=== PATIENT | female | born 1945 | race Caucasian/White ===

== ENCOUNTER 2019-05-03 07:23 | Outpatient (CLI) | payer MEDICARE, SELFPAY ==
[2019-05-03 07:41] LABS: Basophils Absolute Auto 0.04 K/mm3 (0.00-0.10); Basophils Percent Auto 0.7 % (0.0-1.0); Eosinophils Absolute Auto 0.25 K/mm3 (0.02-0.50); Eosinophils Percent Auto 4.4 % (1.0-6.0); Hematocrit 40.9 % (35.0-42.0); Hemoglobin 13.9 g/dL (11.7-13.8); Immature Granulocyte Absolute 0.02 K/mm3 (0.00-0.00); Immature Granulocyte Percent A 0.4 % (0.0-0.0); Lymphocytes Absolute Auto 1.95 K/mm3 (1.10-4.50); Lymphocytes Percent Auto 34.5 % (18.0-42.0); Mean Corpuscular Hemoglobin 31.1 pg (27.0-31.0); Mean Corpuscular Volume 91.5 fL (78.0-102.0); Mean Platelet Volume 9.7 fl (9.2-11.8); Monocytes Absolute Auto 0.52 K/mm3 (0.10-0.90); Monocytes Percent Auto 9.2 % (2.0-11.0); Neutrophils Absolute Auto 2.9 K/mm3 (1.7-7.2); Neutrophils Percent Auto 50.8 % (50.0-70.0); Platelet Count Result 184 K/mm3 (150-420); Red Blood Count 4.47 M/mm3 (4.20-5.40); Red Cell Distribution Width 12.7 % (11.6-14.4); White Blood Count 5.7 K/mm3 (4.8-10.8)
[2019-05-03 09:09] LABS: Alanine Aminotransferase 23 U/L (14-59); Albumin Level 4.2 g/dL (3.4-5.0); Alkaline Phosphatase 81 U/L (46-116); Anion Gap 13.3 mmol/L (7-16); Aspartate Amino Transferase 11 U/L (15-37); Bilirubin,Total 1.5 mg/dL (0.00-1.00); Blood Urea Nitrogen 20 mg/dL (7-18); Calcium 9.2 mg/dL (8.5-10.1); Carbon Dioxide 30 mmol/L (21-32); Chloride 105 mmol/L (98-108); Cholesterol 158 mg/dL (0-200); Estimated Glomerular Filt Rate 43; Glucose 98 mg/dL (70-99); HDL Direct 69 mg/dL (40-60); LDL Cholesterol Calculated 61 mg/dL (<130); Osmolality Calculated 300 mOsm/kg (285-295); Potassium 4.3 mmol/L (3.5-5.1); Sodium 144 mmol/L (136-145); Total Protein 7.4 g/dL (6.4-8.2); Triglycerides 141 mg/dL (0-150)
[2019-05-03 09:13] LABS: Thyroid Stimulating Hormone Reflex 1.81 u/IU/mL (0.36-3.74)
[2019-05-07 19:46] LABS: Hepatitis C Signal to Cutoff 0.01 ratio (<1.00); Hepatitis C Virus Antibody Nonreactive (Nonreactive)
== END 2019-05-03 07:24 | disposition home or self-care (01) ==
LOC: CHSLAB 07:25
PROVIDERS: PCP Family Medicine; Visit Provider Family Medicine
DX: I10 Essential (primary) hypertension (principal); Z11.59 Encounter for screening for other viral diseases
CPT/HCPCS: 36415; 80053; 80061; 84443; 85025

== ENCOUNTER 2019-12-08 10:56 | Outpatient (CLI) | payer MEDICARE, SELFPAY ==
--- NOTE | ~2019-12-08 | MM_ITS ---
EXAMINATION: MM screening blaine LT w louis HISTORY: Screening TECHNIQUE: Craniocaudal and mediolateral oblique 3-D tomosynthesis images were obtained and synthetic 2-D images were generated. CAD analysis was submitted and interpreted. COMPARISON: Comparison to multiple prior studies sequentially, with oldest reviewed study dated 06/2013. BREAST PARENCHYMAL COMPOSITION: There are scattered areas of fibroglandular density. FINDINGS: There is no evidence of suspicious mass, calcification, or architectural distortion to sugg est malignancy in the left breast. There has been no suspicious interval change. IMPRESSION: 1. No mammographic evidence of malignancy. 2. Recommend routine screening mammography in one year. BI-RADS Category 1: Negative Reviewed, dictated and finalized at location A.
== END 2019-12-08 10:57 | disposition home or self-care (01) ==
PROVIDERS: PCP Family Medicine; Visit Provider Family Medicine
DX: Z12.31 Encounter for screening mammogram for malignant neoplasm of breast (principal)
CPT/HCPCS: 77063; 77067

== ENCOUNTER 2020-09-19 09:57 | Outpatient (CLI) | payer MEDICARE, SELFPAY ==
[2020-09-19 10:27] LABS: Basophils Absolute Auto 0.06 K/mm3 (0.00-0.10); Eosinophils Absolute Auto 0.29 K/mm3 (0.02-0.50); Hemoglobin 13.3 g/dL (11.7-13.8); Immature Granulocyte Absolute 0.02 K/mm3 (0.00-0.00); Immature Granulocyte Percent A 0.3 % (0.0-0.0); Lymphocytes Absolute Auto 1.41 K/mm3 (1.10-4.50); Lymphocytes Percent Auto 24.5 % (18.0-42.0); Mean Corpuscular HGB Conc 34.1 g/dL (32.0-36.0); Mean Corpuscular Hemoglobin 31.6 pg (27.0-31.0); Mean Corpuscular Volume 92.6 fL (78.0-102.0); Monocytes Absolute Auto 0.66 K/mm3 (0.10-0.90); Monocytes Percent Auto 11.5 % (2.0-11.0); Neutrophils Absolute Auto 3.3 K/mm3 (1.7-7.2); Neutrophils Percent Auto 57.7 % (50.0-70.0); Platelet Count Result 188 K/mm3 (150-420); Red Blood Count 4.21 M/mm3 (4.20-5.40); Red Cell Distribution Width 12.5 % (11.6-14.4); White Blood Count 5.8 K/mm3 (4.8-10.8)
[2020-09-19 11:29] LABS: Alanine Aminotransferase 28 U/L (14-59); Alkaline Phosphatase 80 U/L (46-116); Anion Gap 11 mmol/L (8-16); Aspartate Amino Transferase 15 U/L (15-37); Bilirubin,Total 1.5 mg/dL (0.00-1.00); Blood Urea Nitrogen 22 mg/dL (7-18); Calcium 9.3 mg/dL (8.5-10.1); Carbon Dioxide 27 mmol/L (21-32); Chloride 103 mmol/L (98-108); Cholesterol 153 mg/dL (0-200); Estimated Glomerular Filt Rate 44; Glucose 91 mg/dL (70-99); HDL Direct 69 mg/dL (40-60); LDL Cholesterol Calculated 65 mg/dL (<130); Osmolality Calculated 295 mOsm/kg (285-295); Potassium 4.7 mmol/L (3.5-5.1); Sodium 141 mmol/L (136-145); Total Protein 6.9 g/dL (6.4-8.2); Triglycerides 97 mg/dL (0-150)
== END 2020-09-19 09:58 | disposition home or self-care (01) ==
LOC: CHSLAB 09:59
PROVIDERS: PCP Family Medicine; Visit Provider Family Medicine
DX: E03.9 Hypothyroidism, unspecified (principal); E11.9 Type 2 diabetes mellitus without complications
CPT/HCPCS: 36415; 80053; 80061; 85025

== ENCOUNTER 2020-10-27 04:58 | Emergency (ER) | payer MEDICARE, SELFPAY ==
--- NOTE | ~2020-10-27 | XR_ITS ---
EXAMINATION: XR chest 1V portable DATE: 10/27/2020 05:17 INDICATION: Shortness of breath TECHNIQUE: frontal view of the chest was obtained. COMPARISON: Chest radiograph dated 09/23/2017 FINDINGS: Calcified nodules in the left midlung zone consistent with old granulomatous disease. Peripheral airs pace opacities, pleural effusion or pneumothorax. There is minimal basilar pulmonary edema on subsequ ent chest CT which is indiscernible on the chest radiograph. The cardiomediastinal silhouette is norm al. IMPRESSION: 1. Minimal pulmonary edema at the lung bases seen on subsequent chest CT which is indiscernible on th e chest radiograph which is unremarkable. Reviewed, dictated and finalized at location A. IMPRESSION: 1. Minimal pulmonary edema at the lung bases seen on subsequent chest CT which is indiscernible on the chest radiograph which is unremarkable.
--- NOTE | ~2020-10-27 | CT_ITS ---
EXAMINATION: CT diagnostic chest wo con DATE: 10/27/2020 06:10 INDICATION: SOB SOB X 1 HOUR/HX OF AFIB TECHNIQUE: Computed tomography (CT) of the chest was performed without intravenous contrast. Addition al 3D reconstructions utilizing coronal maximum intensity projection (MIP) were performed. Automated exposure control and iterative reconstruction technique were employed. The dose-length product was 24 6.06 mGy-cm. COMPARISON: None FINDINGS: There is bilateral mild smooth septal line thickening at the lung bases and dependent lungs consisten t with mild pulmonary edema. Calcified nodules at the lingula consistent with old granulomatous disea se. Heart size is normal. No pericardial or pleural effusion. Atherosclerotic coronary artery calcifi c location. Thoracic aorta is normal in caliber. No pathologically enlarged thoracic lymphadenopathy. Hepatic and splenic calcific lesions consistent with old granulomatous disease. Calcified gallstones at the neck and dependent aspect of the otherwise normal-appearing gallbladder. No dilation, wall th ickening or pericholecystic inflammatory stranding to suggest acute cholecystitis. Bones are unremark able. IMPRESSION: 1. Mild pulmonary edema Reviewed, dictated and finalized at location A. IMPRESSION: 1. Mild pulmonary edema
[2020-10-27 04:58] VITALS: BP 164/60; PULSE 62; RESP 18; TEMP 37.2; O2SAT 98
--- NOTE | 2020-10-27 05:04 | ECG_ITS ---
Measurements Intervals [place] Rate: 61 P: 54 NC: 178 QRS: 57 QRSD: 84 T: 52 QT: 403 QTc: 407 Interpretive Statements SINUS RHYTHM BORDERLINE ST ABNORMALITY- LATERAL LEADS BASELINE ARTIFACT- I, II, III, AVR, AVL, AVF BORDERLINE ECG Electronically Signed On 10-27-2020 7:47:34 CDT by Sid Medrano D.O.
[2020-10-27 05:19] LABS: Basophils Absolute Auto 0.05 K/mm3 (0.00-0.10); Basophils Percent Auto 0.8 % (0.0-1.0); Eosinophils Absolute Auto 0.28 K/mm3 (0.02-0.50); Eosinophils Percent Auto 4.6 % (1.0-6.0); Hematocrit 35.7 % (35.0-42.0); Immature Granulocyte Absolute 0.03 K/mm3 (0.00-0.00); Immature Granulocyte Percent A 0.5 % (0.0-0.0); Lymphocytes Absolute Auto 1.42 K/mm3 (1.10-4.50); Lymphocytes Percent Auto 23.5 % (18.0-42.0); Mean Corpuscular HGB Conc 33.6 g/dL (32.0-36.0); Mean Corpuscular Hemoglobin 30.8 pg (27.0-31.0); Mean Corpuscular Volume 91.8 fL (78.0-102.0); Mean Platelet Volume 9.4 fl (9.2-11.8); Monocytes Absolute Auto 0.63 K/mm3 (0.10-0.90); Monocytes Percent Auto 10.4 % (2.0-11.0); Neutrophils Absolute Auto 3.6 K/mm3 (1.7-7.2); Neutrophils Percent Auto 60.2 % (50.0-70.0); Platelet Count Result 218 K/mm3 (150-420); Red Blood Count 3.89 M/mm3 (4.20-5.40); Red Cell Distribution Width 12.5 % (11.6-14.4)
[2020-10-27 05:20] VITALS: BP 158/89; PULSE 56; RESP 16; O2SAT 98
[2020-10-27] MEDS: PANTOPRAZOLE SODIUM IV 40 MG VIAL IV PUSH (05:32)
[2020-10-27] MEDS: ONDANSETRON INJ 4 MG/2 ML VIAL IV PUSH (05:32)
[2020-10-27] MEDS: methylPREDNISolone SOD SUCC 125 MG VIAL IV PUSH (05:32)
[2020-10-27 05:36] LABS: Partial Thromboplastin Time 28.8 SEC (23.90-30.70); Prothrombin Time 10.6 Seconds (9.50-12.10)
--- NOTE | 2020-10-27 05:36 | ED.CHESTPAIN ---
HPI - Chest Pain General Chief Complaint: Chest Pain Stated Complaint: pain Time Seen by Provider: 10/27/20 05:01 Source: patient and RN notes reviewed Mode of arrival: ambulatory Limitations: no limitations History of Present Illness HPI narrative: sudden SOB, nausea and vomiting with loose stools. no documented fever. Pertinent past history: other (atrial fibrillation) Onset (ago): hour(s) (1) Timing of current episode: episodic Prior episodes: Yes Onset: during rest and awoke with symptoms Severity: mild Pain scale (0-10): 0 Relieving factors: nothing Exacerbating factors: nothing Associated symptoms: nausea and vomiting Treatment prior to arrival: none Related Data Home Medications Medication Instructions Recorded Confirmed apixaban [Eliquis] 5 mg PO BIDAC 03/18/19 10/27/20 metoprolol succinate 50 mg PO BIDAC 03/18/19 10/27/20 dronedarone 400 mg tablet 400 mg PO Q12H 04/29/19 10/27/20 esomeprazole magnesium 20 mg 20 mg PO DAILY 04/29/19 10/27/20 capsule,delayed release aspirin [Adult Low Dose Aspirin] 81 mg PO DAILY 10/27/20 10/27/20 Allergies Allergy/AdvReac Type Severity Reaction Status Date / Time No Known Allergies Allergy Verified 09/19/20 09:48 Review of Systems Review of Systems: All systems reviewed & are unremarkable except as noted in HPI and below Constitutional: Constitutional: Reports as per HPI and Reports no additional constitutional complaints Eyes: Eyes: Reports as per HPI and Reports no additional eye complaints ENT: Reports system reviewed and no additional complaints, except as documented and Reports as per HPI Cardiovascular: Cardiovascular: Reports as per HPI and Reports no additional cardiovascular complaints Respiratory: Respiratory: Reports as per HPI, Reports no additional respiratory complaints and Reports dyspnea Gastrointestinal: Gastrointestinal: Reports as per HPI and Reports no additional gastrointestinal complaints Genitourinary: Genitourinary: Reports no additional female genitourinary complaints and Reports as per HPI Musculoskeletal: Musculoskeletal: Reports no additional musculoskeletal complaints and Reports as per HPI Integumentary/Breasts: Skin/Breast: Reports system reviewed and no additional complaints, except as docu and Reports as per HPI Neurologic: Reports system reviewed and no additional complaints, except as documented and Reports as per HPI Psychiatric: Psychiatric: Reports no additional psychiatric complaints and Reports as per HPI Endocrine: Endocrine: Reports no additional endocrine complaints and Reports as per HPI Hematologic/Lymphatic: Hematologic/Lymphatic: Reports no additional hematologic/lymphatic complaints and Reports as per HPI Allergic/Immunologic: Allergic/Immunologic: Reports no additional allergic/immunologic complaints and Reports as per HPI [facility] Past Medical History Medical History Atrial fibrillation Breast cancer Chronic GERD Hyperlipidemia Hypertension Rheumatic fever Surgical History Surgical History H/O mastectomy History of bladder surgery History of tonsillectomy Social History Social History Smoking status: Never smoker Alcohol intake: never Substance use: never Exam Const: General: no acute distress and alert Orientation/consciousness: patient oriented x3 Limitations: no limitations HENMT: Head: normal to inspection Ears: external ears normal and TM's normal bilaterally Mouth: Yes lip normal and Yes moist mucous membranes Teeth and gingiva: dentition normal Eyes: Conjunctivae: conjunctivae normal Pupils: Equal, round and reactive pupils present EOM: EOMs intact bilaterally Neck: Neck: normal visual inspection Chest: Chest palpation & inspection: normal inspection of the chest Resp: Effort & Inspection: normal respira
[2020-10-27 05:39] LABS: Alanine Aminotransferase 45 U/L (14-59); Albumin Level 3.5 g/dL (3.4-5.0); Alkaline Phosphatase 78 U/L (46-116); Anion Gap 12 mmol/L (8-16); Aspartate Amino Transferase 22 U/L (15-37); Bilirubin,Total 0.8 mg/dL (0.00-1.00); Blood Urea Nitrogen 19 mg/dL (7-18); Calcium 8.5 mg/dL (8.5-10.1); Carbon Dioxide 26 mmol/L (21-32); Chloride 106 mmol/L (98-108); Estimated CRCL calculation 29 ml/min; Estimated Glomerular Filt Rate 44; Glucose 110 mg/dL (70-99); Lipase 44 U/L (73-393); NT Pro B Type Natriuretic Pept 1209 pg/mL (0-125); Osmolality Calculated 301 mOsm/kg (285-295); Potassium 3.9 mmol/L (3.5-5.1); Sodium 144 mmol/L (136-145); Total Protein 6.5 g/dL (6.4-8.2); Troponin I 4.1 ng/L (0.00-60.4)
[2020-10-27] MEDS: ALBUTEROL SULFATE (*SP) INHALER 2 PUFF INHALATION (05:46)
[2020-10-27 06:00] VITALS: BP 160/64; PULSE 58; RESP 16; O2SAT 95
[2020-10-27 06:02] LABS: Base Excess ABG -1.8 mmol/L (0-2); HCO3 ABG 21.4 mmol/L (23-29); Oxygen Content ABG 17.2 %vol (16.0-22.0); Oxygen Saturation ABG 95.6 % (95-97); Oxyhemoglobin 95.2 % (94-100); PO2 ABG 80.9 mmHg (75-85); Total Hemoglobin 12.8 g/dL; pH ABG 7.44 (7.35-7.45)
[2020-10-27 06:05] LABS: Add Urine Microscopic? NO; Appearance Urine Clear (Clear); Bilirubin Urine Negative (Negative); Blood Urine Negative (Negative); Color Urine Light Yellow (Yellow); Device ROOM AIR; Glucose Urine UA Negative (Negative); Ketones Urine Negative (Negative); Leukocyte Esterase Ur Negative (Negative); Modified Allen's Test Pass; Nitrate Urine Negative (Negative); Protein Urine Negative (Negative); Site Drawn LEFT RADIAL; Urobilinogen Urine 0.2 mg/dL (0.2-1.0)
[2020-10-27] MEDS: ASPIRIN 81 MG CHEWABLE TABLET 324 MG PO (06:17)
[2020-10-27 06:23] VITALS: BP 166/59; PULSE 60; RESP 18; O2SAT 96
[2020-10-27 06:23] LABS: SARS-CoV-2 Ag Negative (Negative)
[2020-10-27 06:54] VITALS: BP 159/55; PULSE 59; RESP 16; TEMP 36.6; O2SAT 95
== END 2020-10-27 07:03 | disposition home or self-care (01) ==
PROVIDERS: Emergency Provider Emergency Medicine; PCP Family Medicine
DX: B34.9 Viral infection, unspecified (principal); Z20.822 Contact with and (suspected) exposure to COVID-19; R06.02 Shortness of breath; I48.91 Unspecified atrial fibrillation; Z85.3 Personal history of malignant neoplasm of breast; E78.5 Hyperlipidemia, unspecified; I10 Essential (primary) hypertension
CPT/HCPCS: 36415; 36600; 71045; 71250; 80053; 81003; 82805; 83690; 83880; 84484; 85025; 85610; 85730; 87426; 93005; 96374; 96375; 99283; 99284; A9270; C9113; C9803; J2405; J2930

== ENCOUNTER 2020-12-06 10:00 | Outpatient (CLI) | payer MEDICARE, SELFPAY ==
[2020-12-09 22:03] LABS: H pylori Ag Stool Not Detected (Not Detected)
== END 2020-12-06 10:01 | disposition home or self-care (01) ==
LOC: CHSLAB 10:03
PROVIDERS: PCP Family Medicine; Visit Provider Family Medicine
DX: R10.9 Unspecified abdominal pain (principal)
CPT/HCPCS: 87338

== ENCOUNTER 2020-12-10 12:05 | Outpatient (CLI) | payer MEDICARE, SELFPAY ==
--- NOTE | ~2020-12-10 | MM_ITS ---
EXAMINATION: MM screening blaine LT w louis HISTORY: Screening TECHNIQUE: Craniocaudal and mediolateral oblique 3-D tomosynthesis images were obtained and synthetic 2-D images were generated. CAD analysis was submitted and interpreted. COMPARISON: Comparison to multiple prior studies sequentially, with oldest reviewed study dated 11/15. BREAST PARENCHYMAL COMPOSITION: There are scattered areas of fibroglandular density. FINDINGS: There is no evidence of suspicious mass, calcification, or architectural distortion to sugg est malignancy in either breast. There has been no suspicious interval change. IMPRESSION: 1. No mammographic evidence of malignancy. 2. Recommend routine screening mammography in one year. BI-RADS Category 1: Negative Reviewed, dictated and finalized at location A.
== END 2020-12-10 12:06 | disposition home or self-care (01) ==
LOC: CHSIMG 12:06
PROVIDERS: PCP Family Medicine; Visit Provider Family Medicine
DX: Z12.31 Encounter for screening mammogram for malignant neoplasm of breast (principal)
CPT/HCPCS: 77063; 77067

== ENCOUNTER 2021-03-27 08:00 | Outpatient (RCR) | payer MEDICARE, SELFPAY ==
--- NOTE | 2021-03-26 16:18 | PTOPEVAL ---
Thank you for referring Deedee Mosley to [facility].? The patient is scheduled to be seen for therapy? ____x/week for ___ weeks. Please review, sign, date and return this plan of care SACHA. I agree with and certify that the following plan of care is medically necessary. Referring Physician Date Admitting Provider: Attending Provider: Ladi Arnold NP Referring Provider: *PT Outpatient Evaluation Start: 03/26/21 15:12 Freq: Status: Active Protocol: Document 03/26/21 15:10 [facility] (Rec: 03/26/21 16:13 [facility] [id number]) Therapy Assessment Status Assessment Status Assessment Status Evaluation Outpatient Past Medical History Cardiovascular History Hx Atrial Fibrillation Yes HEENT History Hx Tonsillectomy Yes Reproductive History Hx Post Menopausal Yes Other History Hx Cancer Yes: BREAST Evaluation Information Problem Diagnosis low back pain with R sided sciatica Onset 03/25/21 Additional Evaluation Detail LEFS = 27% functionally declined Subjective Information patient reports she has been Query Text:As Reported By Patient/ having sciatic like symptoms Family for about 1 month. she reports she saw her PCP about 1 month ago. she reports a history of lower back pain for years. she reports she was treated with a dose pack of predisone for 6 days and the pain went away. however, she reports the pain and symptoms came back about 1 week after finishing the dose pack. she reports she is now unable to sleep due to pain. she reports she has increased pain with walking as well. she reports having to help lift her R LE into the car. she reports rest makes her feel better. Prior Level of Function Comments Additional Prior Level of Function patient reports she has a Comments history of lower back problems . she reports no surgery. she reports she was walking for about 0.5 to 1 hour per day prior to her symtpoms beginning. Pain Assessment Timing of Pain Assessment Timing of Pain Assessment Assessment Pain Scale Raúl
--- NOTE | 2021-04-25 10:00 | PTOPEVAL ---
Thank you for referring Deedee Mosley to [facility].? The patient is scheduled to be seen for therapy? ____x/week for ___ weeks. Please review, sign, date and return this plan of care SACHA. I agree with and certify that the following plan of care is medically necessary. Referring Physician Date Admitting Provider: Attending Provider: Ladi Arnold NP Referring Provider: *PT Outpatient Evaluation Start: 03/26/21 15:12 Freq: Status: Active Protocol: Document 04/25/21 08:54 [facility] (Rec: 04/25/21 10:00 [facility] [email or web address]) Therapy Assessment Status Assessment Status Assessment Status Discharge Outpatient Past Medical History Cardiovascular History Hx Atrial Fibrillation Yes HEENT History Hx Tonsillectomy Yes Reproductive History Hx Post Menopausal Yes Other History Hx Cancer Yes: BREAST Evaluation Information Problem Diagnosis low back pain with R sided sciatica Onset 03/25/21 Additional Evaluation Detail LEFS = 5% functionally declined Subjective Information patient reports she feels Query Text:As Reported By Patient/ good this date. she reports Family she has no pain. she reports she only feels sore in the mornings. she reports she is walking and exercising more at home which has helped. she reports she has a pool she can get in in the summer. Pain Assessment Timing of Pain Assessment Timing of Pain Assessment Assessment Pain Scale Pain Scale Used Numeric (1 - 10) Self Report Pain Assessment Lower Back Reported Pain Level 0 Pain Score Pain Score 0: Self Report Interventions Used Interventions Used By Clinicians Activity or ADL's,Education, Exercise Cervical and Lumbar Muscle Testing Lumbar Strength Upper Abdominal Strength 4 Good Lower Abdominal Strength 4-Good- Lower Extremity Muscle Strength Testing General Lower Extremity Strength Gross Lower Extremity Strength 5/5 bilateral hip flex 5/5 bilateral knee flex and ext Muscle Length Testing Muscle Length Testing Piriformis w/Hip Flexion >90 Degrees (R) WFL,(L) WFL Left Hamstring Length 0 Query Text:(90 - 90 Position) Right Hamstring Length 0 Query Text:(90 - 90 Position) Gait Assessment Gait Pattern Assessment Gait Pattern No Deviations/Normal General Exercise General Exercises Exercise Description Ther ex Query Text:Oliver
== END 2021-04-25 10:32 | disposition home or self-care (01) ==
LOC: CHSPT 08:00
PROVIDERS: PCP Nurse Practitioner Family; Visit Provider Nurse Practitioner Family
DX: M54.30 Sciatica, unspecified side (principal)
CPT/HCPCS: 97014; 97110; 97161; 97530; G0283

== ENCOUNTER 2021-04-15 07:47 | Outpatient (CLI) | payer MEDICARE, SELFPAY ==
[2021-04-15 09:12] LABS: Alanine Aminotransferase 24 U/L (14-59); Cholesterol 157 mg/dL (0-200); HDL Direct 77 mg/dL (40-60); LDL Cholesterol Calculated 53 mg/dL (<130); Triglycerides 136 mg/dL (0-150)
== END 2021-04-15 07:48 | disposition home or self-care (01) ==
LOC: CHSLAB 07:51
PROVIDERS: PCP Family Medicine; Visit Provider Specialist
DX: E78.2 Mixed hyperlipidemia (principal); Z79.899 Other long term (current) drug therapy
CPT/HCPCS: 36415; 80061; 84460

== ENCOUNTER 2021-06-03 13:13 | Outpatient (NON) | payer MEDICARE, SELFPAY ==
[2021-06-03 13:25] LABS: Add Urine Microscopic? YES; Appearance Urine Sl Cloudy (Clear); Bilirubin Urine Negative (Negative); Blood Urine 3+ (Negative); Color Urine Light Yellow (Yellow); Glucose Urine UA Negative (Negative); Ketones Urine Negative (Negative); Leukocyte Esterase Ur 3+ LEU/UL (Negative); Nitrate Urine Negative (Negative); Protein Urine Trace (Negative); Urobilinogen Urine 0.2 mg/dL (0.2-1.0); pH Urine 5.5 (5.0-8.0)
[2021-06-03 13:51] LABS: Bacteria Urine 3+ /hpf; Mucus Urine Few /lpf; Squamous Epithelial Cell Urine Occasional /hpf (Few); WBC Urine 31-50 /hpf (0-3)
== END 2021-06-03 13:14 | disposition home or self-care (01) ==
LOC: CHSLAB 13:16
PROVIDERS: Visit Provider Nurse Practitioner Family
DX: N39.0 Urinary tract infection, site not specified (principal)
CPT/HCPCS: 81001; 87077; 87086; 87088; 87186

== ENCOUNTER 2021-12-18 08:49 | Outpatient (CLI) | payer MEDICARE, SELFPAY ==
--- NOTE | ~2021-12-18 | MM_ITS ---
EXAMINATION: MM screening blaine LT w louis HISTORY: Screening left mammogram, history of right mastectomy TECHNIQUE: Craniocaudal and mediolateral oblique 3-D tomosynthesis images were obtained and synthetic 2-D images were generated. CAD analysis was submitted and interpreted. COMPARISON: 12/10/2020, 12/08/2019, 12/02/2018 BREAST PARENCHYMAL COMPOSITION: There are scattered areas of fibroglandular density. FINDINGS: There is focal asymmetry in the middle third of the upper breast. No suspicious calcificati on is identified. IMPRESSION: 1. Focal asymmetry of the left breast. 2. Additional mammographic views and possible breast ultrasound are recommended. BI-RADS Category 0: Incomplete: Needs additional imaging evaluation. Reviewed, dictated and finalized at location D. IMPRESSION: 1. Focal asymmetry of the left breast. 2. Additional mammographic views and possible breast ultrasound are recommended . BI-RADS Category 0: Incomplete: Needs additional imaging evaluation.
== END 2021-12-18 08:50 | disposition home or self-care (01) ==
LOC: CHSIMG 08:51
PROVIDERS: PCP Family Medicine; Visit Provider Family Medicine
DX: Z12.31 Encounter for screening mammogram for malignant neoplasm of breast (principal)
CPT/HCPCS: 77063; 77067

== ENCOUNTER 2021-12-19 11:39 | Outpatient (CLI) | payer MEDICARE, SELFPAY ==
--- NOTE | ~2021-12-19 | XR_ITS ---
EXAMINATION: XR lumbar spine 2-3V DATE: 12/19/2021 11:58 INDICATION: Low back pain TECHNIQUE: Anteroposterior and lateral views of the lumbar spine, and cone-down lateral view of the l umbosacral junction were obtained. COMPARISON: CT dated 10/27/2020 FINDINGS: There is grade 3 anterolisthesis of L5 on S1 which appears to be related to bilateral L5 pa rs defects. Acuity is uncertain. There is a compression fracture of L1 with approximately 40% loss of anterior vertebral body height which is new since the comparison CT. There is moderate loss of inter vertebral disc space height at L3-4. 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 IMPRESSION: 1. Age-indeterminate compression fracture of L1. 2. Grade 3 anterolisthesis of L5 on S1 which appears to be related to bilateral pars defects. Correla tion for any neurologic deficit is recommended and recommend MRI if present. Reviewed, dictated and finalized at location A. IMPRESSION: 1. Age-indeterminate compression fracture of L1. 2. Grade 3 anterolisthesis of L5 on S1 which appears to be related to bilateral pars defects. Correlation for any neurologic deficit is recommended and recomm end MRI if present.
== END 2021-12-19 11:40 | disposition home or self-care (01) ==
LOC: CHSIMG 11:41
PROVIDERS: PCP Family Medicine; Visit Provider Family Medicine
DX: M54.50 Low back pain, unspecified (principal)
CPT/HCPCS: 72100

== ENCOUNTER 2021-12-26 09:06 | Outpatient (CLI) | payer MEDICARE, SELFPAY ==
--- NOTE | ~2021-12-26 | MMUS_ITS ---
EXAMINATION: MM diagnostic mammo unilat LT, US breast LT limited HISTORY: Focal asymmetry of left breast reported on 12/18/2021 screening mammogram TECHNIQUE: Additional 3-D tomosynthesis images of the left breast were performed and synthetic 2-D im ages were generated. CAD analysis was submitted and interpreted. High resolution upper inner and uppe r outer quadrant left breast ultrasound was performed. COMPARISON: 12/18/2021, 12/10/2020, 12/08/2019, 12/02/2018 left screening mammogram examinations FINDINGS: MAMMOGRAPHIC FINDINGS: Focal irregular density and architectural distortion is suggested in the upper mid to medial left gus ast approximately 5.5 cm deep to the nipple (spot MLO Tomosynthesis image 41/70; MLO Tomosynthesis im age 54/82).. Ultrasound imaging of the left breast was performed. ULTRASOUND: There is somewhat serpiginous irregular hypoechoic tissue in the left breast in the 2:00 area, with s ome prominent vascularity in the region. Mild posterior shadowing is noted. Ultrasound-guided biopsy is recommended.. IMPRESSION: 1. Irregular hypoechoic soft tissue and prominent vascularity and mild posterior shadowing in the 2:0 0 area of the left breast, corresponding to mammographic irregular density and architectural distorti on. Ultrasound-guided biopsy is recommended. 2. Ultrasound-guided biopsy of 2:00 areas recommended BI-RADS category 4, suspicious findings. Dr. Wagoner telephoned the report and ultrasound-guided biopsy recommendation on 12/26/[address] Robert's Client Development Director's voicemail Reviewed, dictated and finalized at location A. IMPRESSION: 1. Irregular hypoechoic soft tissue and prominent vascularity and mild posterio r shadowing in the 2:00 area of the left breast, corresponding to mammographic irregular density and architectural distortion. Ultrasound-guided biopsy is rec ommended. 2. Ultrasound-guided biopsy of 2:00 areas recommended BI-RADS category 4, suspicious findings. Dr. Wagoner telephoned the report and ultrasound-guided biopsy recommendation on at [address] Robert's Client Development Director's voicemail
== END 2021-12-26 09:07 | disposition home or self-care (01) ==
LOC: CHSIMG 09:07
PROVIDERS: PCP Family Medicine; Visit Provider Family Medicine
DX: R92.8 Other abnormal and inconclusive findings on diagnostic imaging of breast (principal)
CPT/HCPCS: 76642; 77061; 77065; G0279

== ENCOUNTER 2021-12-26 12:48 | Outpatient (RCR) | payer MEDICARE, SELFPAY ==
--- NOTE | 2021-12-26 13:52 | PTOPEVAL1 ---
Assessment and note entered by JT File, PT Evaluation Information Assessment Status Evaluation Diagnosis low back pain Onset 12/03/21 Subjective Information patient reports she fell and injured her back on 12/03/21. she reports she was walking out of her house to the garage and missed her step. she reports she was told she does have a fracture in the spine, but reports they are not sure whether it is new or old. she reports she has increased pain with nearly everything. she reports increased pain with pronlonged sitting, riding in car, and standing. she reports she has less pain with movement/walking. however, she reports too much walking will cause her pain at the end of the day. Reported Pain Level Pain Score 2: Self Report Assessment PT Clinical Summary mrs. smart presents to skilled PT services for evaluation and treatment of lower back pain from a fall about a month ago. she presents with signs and symptoms of an arthritic flare up of the lumbar spine, core weakness, and reports she does have a lumbar fracture. she would do well to attend and participate in skilled PT to improve her righting reactions, core stability, lumbar rom , and strength to return to safe prior level functional activities. Plan of Care Interventions Electrical Stimulation,Gait Training,Hot Pack/Cold Pack,Manual Therapy,Neuro Re-education,Patient/ Caregiver Educati,Therapeutic Activities, Therapeutic Exercise PT Services Indicated Yes Treatment Frequency and 2x weekly for 8 visits Duration These treatments will address the objective and functional deficits as defined above. The patient will be advanced safely and appropriately in order for the patient to progress towards his/her prior level of function. Additional exercises will be introduced and as well as a comprehensive home exercise program upon discharge, if needed, ?to ensure carryover of functional gains achieved in the clinic. This treatment plan has been reviewed and agreement upon by the patient.
== END 2022-01-27 14:43 | disposition home or self-care (01) ==
LOC: CHSPT 12:48
PROVIDERS: PCP Family Medicine; Visit Provider Family Medicine
DX: M54.50 Low back pain, unspecified (principal)
CPT/HCPCS: 97014; 97110; 97112; 97140; 97161; G0283

== ENCOUNTER 2022-01-15 13:10 | Outpatient (CLI) | payer MEDICARE, SELFPAY ==
--- NOTE | ~2022-01-15 | US_ITS ---
US breast LT limited 01/15/2022 13:46 Indication: Hypoechoic soft tissue noted in the left breast at 2:00 on prior examination. Biopsy carly mmended. Procedure: High-resolution Limited ultrasound of the left breast at 2:00 position Comparison: Ultrasound and mammogram dated 12/26/2021 Findings: There are multiple clustered hypoechoic nodules with echogenic hilum at the 2:00 position, consistent with lymph nodes. There is extremely dense tissue with shadowing. No suspicious discrete m asses are identified. Impression: 1: Probable benign clustered lymph nodes at the 2:00 position of the left breast. Biopsy canceled. Re commend short-term follow-up 6 month interval diagnostic left mammogram and ultrasound. BI-RADS CATEGORY 3-PROBABLY BENIGN FINDING RECOMMENDATION: 6 month follow up recommended. Reviewed, dictated and finalized at location A. Impression: 1: Probable benign clustered lymph nodes at the 2:00 position of the left breas t. Biopsy canceled. Recommend short-term follow-up 6 month interval diagnostic left mammogram and ultrasound. BI-RADS CATEGORY 3-PROBABLY BENIGN FINDING RECOMMENDATION: 6 month follow up recommended.
== END 2022-01-15 13:11 | disposition home or self-care (01) ==
LOC: CHSIMG 13:11
PROVIDERS: PCP Family Medicine; Visit Provider Family Medicine
DX: R92.8 Other abnormal and inconclusive findings on diagnostic imaging of breast (principal)
CPT/HCPCS: 76642

== ENCOUNTER 2022-06-17 18:57 | Emergency (ER) | payer MEDICARE, SELFPAY ==
[2022-06-17] VITALS (7 sets, daily range): BP systolic 106–146; BP diastolic 61–105; PULSE 70–136; RESP 13–20; TEMP 36.6; O2SAT 95–100
--- NOTE | ~2022-06-17 | XR_ITS ---
EXAMINATION: XR chest 1V portable Exam Date/Time: 06/17/2022 20:01 CDT HISTORY: AFib with RVR, lightheadedness, dizziness tonight. Comparison: 10/27/2020. RESULT: Lines, tubes, and devices: None. Lungs and pleura: Clear. Calcified left midlung granuloma. Cardiomediastinal silhouette: Stable. Other: No acute osseous or upper abdominal finding. IMPRESSION: No acute cardiopulmonary process. Reviewed, dictated and finalized at location K.
--- NOTE | 2022-06-17 19:21 | ECG_ITS ---
Measurements Intervals [place] Rate: 123 P: MN: 0 QRS: 40 QRSD: 105 T: 3 QT: 298 QTc: 428 Interpretive Statements ATRIAL FIBRILLATION WITH RAPID VENTRICULAR RESPONSE NONSPECIFIC ST & T-WAVE ABNORMALITY- ANTEROLAT/INF LEADS ABNORMAL ECG COMPARED TO ECG 10/27/2020 05:11:54 ATRIAL FIBRILLATION NOW PRESENT Electronically Signed On 06-18-2022 6:44:44 CDT by Sid Medrano D.O.
[2022-06-17] MEDS: dilTIAZem HCl INJ 25 MG/5 ML VIAL 20 MG IV PUSH (19:25)
--- NOTE | 2022-06-17 19:33 | ED.ARRPALP ---
HPI - Arrhythmia/Palpitations General Chief Complaint: Arrhythmia/Palpitations Stated Complaint: Cardiac Time Seen by Provider: 06/17/22 19:20 Source: patient and family Mode of arrival: ambulatory Limitations: no limitations History of Present Illness HPI narrative: 77-year-old white female with history of AFib 4 years ago converted spontaneously and then 3 years ago had AFib with RVR 2nd time eventually converted now on metoprolol and Multaq 400 mg daily. Today around 1:00 p.m. she started having fluttering in her chest associated with a little shortness of breath. Denies any chest pain nausea vomiting or any other symptoms. MD complaint: rapid heart beat, heart racing , palpitations, irregular heart beat and atrial fibrillation Duration: constant Severity: mild Context: occurred during rest Arrhythmia history: atrial fibrillation Related Data Home Medications Medication Instructions Recorded Confirmed apixaban 5 mg tablet (Eliquis) 5 mg PO BIDAC 03/18/19 06/17/22 dronedarone 400 mg tablet (Multaq) 400 mg PO Q12H 04/29/19 06/17/22 esomeprazole magnesium 20 mg 20 mg PO DAILY 04/29/19 06/17/22 capsule,delayed release (Nexium) aspirin 81 mg tablet 81 mg PO DAILY 10/27/20 06/17/22 metoprolol succinate 25 mg 25 mg PO BID 12/19/21 06/17/22 tablet,extended release 24 hr Allergies Allergy/AdvReac Type Severity Reaction Status Date / Time No Known Allergies Allergy Verified 06/17/22 19:18 Review of Systems Constitutional: Constitutional: Reports no additional constitutional complaints, Denies chills, Denies fatigue and Denies fever(s) Eyes: Eyes: Reports no additional eye complaints ENT: Reports system reviewed and no additional complaints, except as documented Cardiovascular: Cardiovascular: Reports as per HPI, Denies chest pain, Reports rapid heart rate, Denies radiating jaw, neck or arm pain and Denies slow heart rate Respiratory: Respiratory: Reports as per HPI, Denies chest congestion, Denies cough, Reports dyspnea and Denies wheezing Gastrointestinal: Gastrointestinal: Reports no additional gastrointestinal complaints Genitourinary: Genitourinary: Reports no additional female genitourinary complaints Musculoskeletal: Musculoskeletal: Reports no additional musculoskeletal complaints Integumentary/Breasts: Skin/Breast: Reports system reviewed and no additional complaints, except as docu Neurologic: Reports system reviewed and no additional complaints, except as documented Psychiatric: Psychiatric: Reports no additional psychiatric complaints Endocrine: Endocrine: Reports no additional endocrine complaints Hematologic/Lymphatic: Hematologic/Lymphatic: Reports no additional hematologic/lymphatic complaints Allergic/Immunologic: Allergic/Immunologic: Reports no additional allergic/immunologic complaints PMFSH Past Medical History Medical History Abdominal bloating Atrial fibrillation Breast cancer Chronic GERD Diarrhea Hyperlipidemia Hypertension Rheumatic fever Viral upper respiratory illness Surgical History Surgical History H/O mastectomy History of bladder surgery History of tonsillectomy Social History Social History Smoking status: Never smoker Alcohol intake: never Substance use: never Living arrangements: with family Exam Const: General: healthy appearing Nutritional Appearance: well nourished Orientation/consciousness: patient oriented x3 Limitations: no limitations HENMT: Head: normal to inspection Ears: external ears normal Face/Nose/Sinus: Normal external nose present Face and sinus: normal facial exam Mouth: Yes Normal oral and palatal mucosa present, Yes lip normal and Yes moist mucous membranes Teeth and gingiva: dentition normal Throat: posterior oropharynx normal and uvula midline Eyes
[2022-06-17 19:37] LABS: Hematocrit 40.4 % (35.0-42.0); Hemoglobin 13.4 g/dL (11.7-13.8); Mean Corpuscular HGB Conc 33.2 g/dL (32.0-36.0); Mean Corpuscular Hemoglobin 30.5 pg (27.0-31.0); Mean Platelet Volume 10.3 fl (9.2-11.8); Platelet Count Result 181 K/mm3 (150-420); Red Blood Count 4.39 M/mm3 (4.20-5.40); Red Cell Distribution Width 12.6 % (11.6-14.4); White Blood Count 6.1 K/mm3 (4.8-10.8)
[2022-06-17 19:51] LABS: D Dimer 0.19 mg/L (0.19-0.50); Partial Thromboplastin Time 29.1 SEC (23.90-30.70)
[2022-06-17 19:55] LABS: Alanine Aminotransferase 17 U/L (14-59); Albumin Level 3.9 g/dL (3.4-5.0); Alkaline Phosphatase 84 U/L (46-116); Anion Gap 11 mmol/L (8-16); Aspartate Amino Transferase 21 U/L (15-37); Bilirubin,Total 1.1 mg/dL (0.00-1.00); Blood Urea Nitrogen 25 mg/dL (7-18); Carbon Dioxide 26 mmol/L (21-32); Chloride 104 mmol/L (98-108); Estimated Glomerular Filt Rate 35; Glucose 155 mg/dL (70-99); Magnesium 2.3 mg/dL (1.8-2.4); Osmolality Calculated 299 mOsm/kg (285-295); Potassium 4.2 mmol/L (3.5-5.1); Sodium 141 mmol/L (136-145); Total Protein 7.2 g/dL (6.4-8.2); Troponin I 5.5 ng/L (0.00-60.4)
== END 2022-06-17 21:53 | disposition home or self-care (01) ==
PROVIDERS: Emergency Provider Emergency Medicine; PCP Family Medicine
DX: I48.20 Chronic atrial fibrillation, unspecified (principal); E78.5 Hyperlipidemia, unspecified; I10 Essential (primary) hypertension; Z85.3 Personal history of malignant neoplasm of breast; Z79.01 Long term (current) use of anticoagulants; Z79.82 Long term (current) use of aspirin
CPT/HCPCS: 36415; 71045; 80053; 83735; 84484; 85027; 85380; 85610; 85730; 93005; 96374; 99284

== ENCOUNTER 2022-09-29 09:26 | Outpatient (CLI) | payer MEDICARE, SELFPAY ==
--- NOTE | ~2022-09-29 | MMUS_ITS ---
EXAMINATION: MM diagnostic blaine LT w louis, US breast LT limited HISTORY: Six-month follow-up for probably benign left breast focal asymmetry TECHNIQUE: Craniocaudal, mediolateral, and mediolateral oblique 3-D tomosynthesis images of the left breast were performed and synthetic 2-D images were generated. CAD analysis was submitted and interpr eted. High resolution limited left breast ultrasound was performed. COMPARISON: 12/26/2021, 12/18/2021, 12/10/2020, 12/08/2019 FINDINGS: MAMMOGRAPHIC FINDINGS: There is stable focal asymmetry in the upper outer quadrant of the left breast. There has been no frances picious interval change. No mass, calcification, or architectural distortion are identified. ULTRASOUND: There is no evidence of focal abnormal solid or cystic mass in the vicinity of the mammographic findi ng in question. Again seen are what appear to be debris filled ducts have 2:00 location near the nipp le without significant change. IMPRESSION: 1. Probably benign left breast findings. 2. Recommend 6 month follow-up left diagnostic mammogram and possible ultrasound. BI-RADS category 3, probably benign findings. Reviewed, dictated and finalized at location A. IMPRESSION: 1. Probably benign left breast findings. 2. Recommend 6 month follow-up left diagnostic mammogram and possible ultrasoun d. BI-RADS category 3, probably benign findings.
== END 2022-09-29 09:27 | disposition home or self-care (01) ==
LOC: CHSIMG 09:27
PROVIDERS: PCP Family Medicine; Visit Provider Family Medicine
DX: R92.8 Other abnormal and inconclusive findings on diagnostic imaging of breast (principal)
CPT/HCPCS: 76642; 77061; 77065; G0279

== ENCOUNTER 2022-10-31 14:10 | Outpatient (CLI) | payer MEDICARE, SELFPAY ==
--- NOTE | ~2022-10-31 | XR_ITS ---
EXAMINATION: XR thoracic spine 3V DATE: 10/31/2022 14:44 INDICATION: Thoracic back pain TECHNIQUE: AP, lateral and lateral swimmer's views of the thoracic spine were obtained. COMPARISON: 12/19/2021 FINDINGS: There is fracture, dislocation, or subluxation of the thoracic spine. The thoracic vertebra l body heights are normal. There is mild loss of intervertebral disc space height at multiple levels in the thoracic spine. An L1 compression fracture demonstrates interval worsening of vertebral body h eight loss since the comparison examination. Severe facet joint osteoarthritis is noted in the cervic al spine IMPRESSION: 1. Mild thoracic spondylosis. 2. Chronic L1 compression fracture with worsening of vertebral body height loss. Reviewed, dictated and finalized at location F. IMPRESSION: 1. Mild thoracic spondylosis. 2. Chronic L1 compression fracture with worsening of vertebral body height loss .
--- NOTE | ~2022-10-31 | XR_ITS ---
EXAMINATION: XR elbow LT 2V INDICATION: Left elbow pain TECHNIQUE: Two views of the left elbow are obtained. COMPARISON: 04/22/2012 FINDINGS: Bone alignment is normal. There is no fracture. Joint spaces are unremarkable. The soft tis sues are normal. IMPRESSION: 1. No acute osseous abnormality. Reviewed, dictated and finalized at location F.
--- NOTE | ~2022-10-31 | XR_ITS ---
EXAMINATION: XR shoulder LT min 2V INDICATION: Cervical radiculopathy, left shoulder pain TECHNIQUE: Four views of the left shoulder are submitted. COMPARISON: 01/20/2013 FINDINGS: Normal alignment. No fracture. Glenohumeral and acromioclavicular joint spaces are normal. Soft tissues are unremarkable. IMPRESSION: 1. No acute osseous abnormality. Reviewed, dictated and finalized at location F.
--- NOTE | ~2022-10-31 | XR_ITS ---
EXAMINATION:XR_CERV2-3V_CR DATE: 10/31/2022 14:44 INDICATION: Cervical radiculopathy TECHNIQUE: AP, lateral, and odontoid views of the cervical spine are provided. COMPARISON: None FINDINGS: There are 2 mm of anterolisthesis of C4 on C5. There is 1 mm of anterolisthesis of C5 on C6 . The odontoid process is intact. No fracture is identified. The vertebral body heights are normal. T here is moderate loss of intervertebral disc space height at C5-6. There is severe facet joint osteoa rthritis at throughout the cervical spine, worst at C3-4. There is multilevel moderate uncovertebral joint osteoarthritis. Prevertebral soft tissues are normal. IMPRESSION: 1. Multilevel severe facet joint osteoarthritis. Reviewed, dictated and finalized at location F.
== END 2022-10-31 14:11 | disposition home or self-care (01) ==
LOC: CHSIMG 14:14
PROVIDERS: PCP Family Medicine; Visit Provider Nurse Practitioner Family
DX: M54.12 Radiculopathy, cervical region (principal); M48.56XA Collapsed vertebra, not elsewhere classified, lumbar region, initial encounter for fracture; M85.88 Other specified disorders of bone density and structure, other site; M43.04 Spondylolysis, thoracic region
CPT/HCPCS: 72040; 72072; 73030; 73070

== ENCOUNTER 2022-11-17 08:45 | Outpatient (RCR) | payer MEDICARE, SELFPAY ==
--- NOTE | 2022-11-17 10:17 | PTOPEVAL1 ---
Assessment and note entered by Maksim Lobo Evaluation Information Assessment Status Evaluation Diagnosis vertebrogenic back pain, fx 1st lumbar, cervical spondylosis Onset 10/21/22 Subjective Information Pt. reports she woke the last week of September with developed pain in the left side of the neck. She reports that her low back is no longer an issue. She describes pain radiating into the left shoulder, down into the left shoulder and into the elbow. She describes numbness into the 2nd and 3rd digits. She reports pain is work at night and has trouble falling asleep due to pain. She reports pain is also worsened with bending forward . She is right hand dominant. She enjoys doing her yardwork, but has not been able to do any gardening or grass cutting since developing the pain. She reports that cleaning her house has become difficult due to increased pain with overhead activities. She reports that her goal is to decrease her neck and shoulder pain. Reported Pain Level Pain Score 5: Self Report Assessment PT Clinical Summary Pt. is a 77 year old female who enters the clinic with neck pain. She presents with impaired c- spine mobility, functional decline, pain, difficulty with ADL's and mild proximal u.e. weakness. Continued skilled PT is indicated in order to improve these areas to assist with improved comfort and efficiency with IADL's. Plan of Care Interventions Electrical Stimulation,Hot Pack/Cold Pack,Manual Therapy,Neuro Re-education,Patient/Caregiver Educati,Therapeutic Activities,Therapeutic Exercise PT Services Indicated Yes Treatment Frequency and 3x/week x 12 visits Duration These treatments will address the objective and functional deficits as defined above. The patient will be advanced safely and appropriately in order for the patient to progress towards his/her prior level of function. Additional exercises will be introduced and as well as a comprehensive home exercise program upon discharge, if needed, ?to ensure carryover of functional gains achieved in the clinic. This treatment plan has been reviewed and agreement upon by the patient.
--- NOTE | 2022-11-17 10:20 | OPREHPOC ---
Outpatient Therapy Plan of Care This is a Multidisciplinary Plan of Care that may contain components documented by all disciplines (PT, OT, and ST.) PT Problem 1 PT Problem #1 Knowledge Deficit PT Goal 1 Goal Pt. will be independent with a HEP addressing posture and strength. Target Visit 2 PT Problem 2 PT Problem #2 Pain PT Goal 1 Goal Pt. will reports pain levels at 5/10 at worst. Target Visit 12 PT Problem 3 PT Problem #3 Impaired Range of Motion PT Goal 1 Goal -Pt. will demonstrate 70 degrees left c-spine rotation -Pt. will demonstrate 25 degrees left c-spine lateral flexion Target Visit 12 PT Problem 4 PT Problem #4 Impaired Strength PT Goal 1 Goal Pt. will present with 5/5 proximal u.e. strength. PT Problem 5 PT Problem #5 Impaired Functional Mobil PT Goal 1 Goal -Pt. will report being able to sleep through the night without pain disturbance. -Pt. will demonstrate a 20% improvement or greater in her Oswestry score. Target Visit 12
--- NOTE | 2022-12-12 14:10 | OPREHPOC ---
Outpatient Therapy Plan of Care This is a Multidisciplinary Plan of Care that may contain components documented by all disciplines (PT, OT, and ST.) PT Problem 1 PT Problem #1 Knowledge Deficit PT Goal 1 Goal Pt. will be independent with a HEP addressing posture and strength. Target Visit 2 Progress Met PT Problem 2 PT Problem #2 Pain PT Goal 1 Goal Pt. will reports pain levels at 5/10 at worst. Target Visit 12 Comment continue PT Problem 3 PT Problem #3 Impaired Range of Motion PT Goal 1 Goal -Pt. will demonstrate 70 degrees left c-spine rotation -Pt. will demonstrate 25 degrees left c-spine lateral flexion Target Visit 12 Comment continue PT Problem 4 PT Problem #4 Impaired Strength PT Goal 1 Goal Pt. will present with 5/5 proximal u.e. strength. Comment continue PT Problem 5 PT Problem #5 Impaired Functional Mobil PT Goal 1 Goal -Pt. will report being able to sleep through the night without pain disturbance. -Pt. will demonstrate a 20% improvement or greater in her Oswestry score. Target Visit 12 Comment continue
--- NOTE | 2022-12-12 14:10 | PTOPPROG ---
Assessment and note entered by Lauren Villaseñor DPT Evaluation Information Assessment Status Progress Diagnosis vertebrogenic back pain, fx 1st lumbar, cervical spondylosis Onset 10/21/22 Subjective Information Patient reports that pain has decreased but she continues to have radiating pain down the L UE. She reports she is able to sit in a chair for longer periods of time before radiating symptoms start. She reports that sleeping is the most difficult for her at this time. Assessment PT Clinical Summary Patient has been seen for 10 visits of skilled PT with some progress towards goals. Patient demonstrates decreased neck pain and improved cervical L rotation. She continues to have radiating pain to the L UE but does report she is able to sit for longer before radiating pain starts. She reports pain with sleeping. She would benefit from continued skilled PT to address remaining impairments and return to PLOF. Plan of Care Interventions Electrical Stimulation,Hot Pack/Cold Pack,Manual Therapy,Neuro Re-education,Patient/Caregiver Educati,Therapeutic Activities,Therapeutic Exercise PT Services Indicated Yes Treatment Frequency and continue with remaining 2 visits Duration These treatments will address the objective and functional deficits as defined above. The patient will be advanced safely and appropriately in order for the patient to progress towards his/her prior level of function. Additional exercises will be introduced and as well as a comprehensive home exercise program upon discharge, if needed, ?to ensure carryover of functional gains achieved in the clinic. This treatment plan has been reviewed and agreement upon by the patient.
--- NOTE | 2022-12-19 11:57 | OPREHPOC ---
Outpatient Therapy Plan of Care This is a Multidisciplinary Plan of Care that may contain components documented by all disciplines (PT, OT, and ST.) PT Problem 1 PT Problem #1 Knowledge Deficit PT Goal 1 Goal Pt. will be independent with a HEP addressing posture and strength. Target Visit 2 Progress Met PT Problem 2 PT Problem #2 Pain PT Goal 1 Goal Pt. will reports pain levels at 5/10 at worst. Target Visit 12 Progress Met Comment continue PT Problem 3 PT Problem #3 Impaired Range of Motion PT Goal 1 Goal -Pt. will demonstrate 70 degrees left c-spine rotation -Pt. will demonstrate 25 degrees left c-spine lateral flexion Target Visit 12 Progress Partially Met Comment continue PT Problem 4 PT Problem #4 Impaired Strength PT Goal 1 Goal Pt. will present with 5/5 proximal u.e. strength. Progress Met Comment continue PT Problem 5 PT Problem #5 Impaired Functional Mobil PT Goal 1 Goal -Pt. will report being able to sleep through the night without pain disturbance. -Pt. will demonstrate a 20% improvement or greater in her Oswestry score. Target Visit 12 Progress Not Met Comment continue
--- NOTE | 2022-12-19 11:58 | PTOPDC ---
Assessment and note entered by Lauren Villaseñor DPT Evaluation Information Assessment Status Re-evaluation Diagnosis vertebrogenic back pain, fx 1st lumbar, cervical spondylosis Onset 10/21/22 Subjective Information Patient reports that pain has decreased but she continues to have radiating pain down the L UE. She reports neck pain has been very low with most times of no pain. She reports she has difficulty with looking over her L shoulder and has difficulty with use of L arm. Reported Pain Level Pain Score 6,0,0: Self Report Assessment PT Clinical Summary Mrs. Mosley has been seen for 12 visits of skilled PT with goals partially met. She has decreased neck pain but continues to have L UE pain and tingling with use of the L arm and when looking over the L shoulder to drive. Recommend patient return to MD for addittional testing to determine continuation of care. Patient is agreeable to DC at this time. Plan of Care PT Services Indicated No
== END 2022-12-19 16:38 | disposition home or self-care (01) ==
LOC: CHSPT 08:45
PROVIDERS: PCP Family Medicine; Visit Provider Nurse Practitioner Family
DX: S32.019A Unspecified fracture of first lumbar vertebra, initial encounter for closed fracture (principal); M47.812 Spondylosis without myelopathy or radiculopathy, cervical region
CPT/HCPCS: 97012; 97014; 97110; 97140; 97161; G0283

== ENCOUNTER 2023-03-10 07:52 | Emergency (ER) | payer MEDICARE, SELFPAY ==
[2023-03-10 08:04] VITALS: BP 186/65; PULSE 52; RESP 18; TEMP 36.1; O2SAT 98
--- NOTE | 2023-03-10 08:04 | ED.GENADULT ---
HPI - General Adult General Chief complaint: Urogenital-Female Stated complaint: urinary complaint Time Seen by Provider: 03/10/23 08:04 Source: patient and family Mode of arrival: ambulatory Limitations: no limitations History of Present Illness HPI narrative: 78-year-old white female with history of urinary tract infections in the past on Eliquis complains of suprapubic pressure urgency last night and then hematuria and dysuria this morning without any fever. She did have associated nausea and has not ate much this morning she felt a little dizzy last night when she got but not now. She has chronic Neck pain that is not changed. denies any vomiting diarrhea. She had a normal bowel movement this morning denies any cough fever sore throat runny nose rash or itching swelling lumps or bumps. Denies any problems walking talking seeing or hearing. Denies any other complaints. Related Data Home Medications Medication Instructions Recorded Confirmed apixaban 5 mg tablet (Eliquis) 5 mg PO BIDAC 03/18/19 01/28/23 esomeprazole magnesium 20 mg 20 mg PO DAILY 04/29/19 01/28/23 capsule,delayed release (Nexium) aspirin 81 mg tablet 81 mg PO DAILY 10/27/20 01/28/23 amiodarone 200 mg tablet 200 mg PO DAILY 10/31/22 01/28/23 metoprolol succinate 25 mg 25 mg PO ONCE 10/31/22 01/28/23 tablet,extended release 24 hr Allergies Allergy/AdvReac Type Severity Reaction Status Date / Time No Known Allergies Allergy Verified 03/10/23 08:07 Review of Systems Review of Systems: All systems reviewed & are unremarkable except as noted in HPI and below PMFSH Past Medical History Medical History Abdominal bloating Atrial fibrillation Breast cancer Chronic GERD Diarrhea Hyperlipidemia Hypertension Rheumatic fever Viral upper respiratory illness Surgical History Surgical History H/O mastectomy History of bladder surgery History of tonsillectomy Social History Social History Smoking status: Never smoker Alcohol intake: never Substance use: never Living arrangements: with family Exam Narrative: Patient is a white female? and appears in no apparent distress. ? Head is normocephalic atraumatic. ? Eyes:? Pupils are equal round react light extraocular movements are intact. ? Ears:? Hearing is grossly normal. ? Nose:? Normal. ??Lungs:? Clear to auscultation without wheezes rales or rhonchi . Thorax:? Chest wall nontender without crepitation. ? Heart:? Regular rate and rhythm without murmurs gallops or rubs. ? Back:? Nontender. no CVA tender ? Abdomen:? Positive bowel sounds, soft, nontender, no hepatosplenomegaly or masses, mild suprapubic tenderness, no abdominal bruits, no guarding or rebound. ? Extremities:? Full range of motion nontender .?? No cyanosis clubbing or edema. ?Neuro:? alert and oriented x4.? Motor and sensory grossly intact.? Speech is normal.? Affect normal.? Cranial nerves 2-12 are normal . ? Skin:? Warm and dry without lesions. Medical Decision Making MDM Narrative Medical decision making narrative: Patient placed in room the 6 with her . History and physical was performed. urinalysis was obtained with reflex which showed 3+ leukocyte esterase 21-50 RBCs and 31-50 wbc's with +1 bacteria consistent with UTI. Independent Historian: ? Differential Dx includes but not limited to: UTI pyelonephritis diverticulitis Medications were Reviewed:? ? home meds reviewed Medications treatments given: cephalexin 500 peridium 200 mg Independently Interpreted by me:? urinalysis was independently interpreted by me.? External Source Review:?? Medical conditions/social Situation Impacting Patients Care:?? History urinary tract infection the past and bladder time of surgery. On Eliquis Shared decision Making:? evaluation discusse
[2023-03-10 08:11] LABS: Appearance Urine Cloudy (Clear); Bilirubin Urine 2+ (Negative); Blood Urine 3+ (Negative); Color Urine Light Yellow (Yellow); Glucose Urine UA Negative (Negative); Ketones Urine Negative (Negative); Leukocyte Esterase Ur 3+ LEU/UL (Negative); Nitrate Urine Negative (Negative); Protein Urine 2+ (Negative); Specific Grav Ur 1.025 (1.010-1.020); pH Urine 6.5 (5.0-8.0)
[2023-03-10 08:16] LABS: Add Urine Microscopic? YES
[2023-03-10 08:17] LABS: Bacteria Urine 1+ /hpf; RBC Urine 21-50 /hpf (0-2); Squamous Epithelial Cell Urine Rare /hpf (Few); WBC Urine 31-50 /hpf (0-3)
[2023-03-10] MEDS: PHENAZOPYRIDINE HCL 100 MG TABLET 200 MG PO (08:21)
[2023-03-10] MEDS: CEPHALEXIN 500 MG CAPSULE PO (08:21)
--- NOTE | 2023-03-14 13:03 | PC.NURSE ---
spoke with pt regarding urine culture, stated keflex made her sick, dr hernandez started on bactrim. bactrim is resistant. new rx per dr villalba for cipro 250mg bid x 5 days called in to [facility] per pt request. pt voiced understanding to stop bactim and complete cipro
== END 2023-03-10 08:37 | disposition home or self-care (01) ==
LOC: CHSED 08:35
PROVIDERS: Emergency Provider Emergency Medicine; PCP Family Medicine
DX: N39.0 Urinary tract infection, site not specified (principal); I48.91 Unspecified atrial fibrillation; E87.5 Hyperkalemia; I10 Essential (primary) hypertension; Z85.3 Personal history of malignant neoplasm of breast
CPT/HCPCS: 81001; 87077; 87086; 87088; 87186; 99283; A9270

== ENCOUNTER 2023-03-12 10:46 | Outpatient (CLI) | payer MEDICARE, SELFPAY ==
[2023-03-12 11:01] LABS: Appearance Urine Cloudy (Clear); Bilirubin Urine 1+ (Negative); Blood Urine 2+ (Negative); Glucose Urine UA Trace (Negative); Ketones Urine Negative (Negative); Leukocyte Esterase Ur 3+ LEU/UL (Negative); Nitrate Urine Positive (Negative); Protein Urine 2+ (Negative)
[2023-03-12 11:08] LABS: Color Urine Dark Orange (Yellow)
[2023-03-12 11:09] LABS: Add Urine Microscopic? YES; Bacteria Urine 3+ /hpf; Squamous Epithelial Cell Urine Occasional /hpf (Few); WBC Urine 51-75 /hpf (0-3)
[2023-03-12 11:26] VITALS: BP 113/99; PULSE 50; RESP 16; TEMP 36.1
[2023-03-12] MEDS: cefTRIAXone 2 GM/NS 100 ML 2 GM/100 ML BAG IVPB (11:53)
[2023-03-12] MEDS: SODIUM CHLORIDE 0.9% IV 1,000 ML 500 ML IVPB (11:54)
[2023-03-12] MEDS: ONDANSETRON INJ 4 MG/2 ML VIAL IV PUSH (14:08)
[2023-03-12 14:23] VITALS: BP 132/50; PULSE 53; RESP 116; TEMP 36.2; O2SAT 99
--- NOTE | 2023-03-12 14:30 | PC.NURSE ---
Pt left at 1420 walking to elevator states she is feeling a little better. Tolerated infusion well.
--- NOTE | 2023-03-18 10:18 | PC.NURSE ---
Cetriaxone and NS stopped at 1410.
== END 2023-03-12 10:47 | disposition home or self-care (01) ==
LOC: CHSTREATRM 10:49
PROVIDERS: PCP Family Medicine; Visit Provider Family Medicine
DX: N39.0 Urinary tract infection, site not specified (principal); M54.50 Low back pain, unspecified
CPT/HCPCS: 81001; 87077; 87086; 87088; 87186; 96360; 96361; 96365; 96366; 96368; 96375; J0696; J2405; J7030

== ENCOUNTER 2023-03-24 10:45 | Outpatient (CLI) | payer MEDICARE, SELFPAY ==
[2023-03-24 11:25] LABS: Anion Gap 6 mmol/L (8-16); Blood Urea Nitrogen 18 mg/dL (7-18); Calcium 8.8 mg/dL (8.5-10.1); Carbon Dioxide 33 mmol/L (21-32); Chloride 99 mmol/L (98-108); Estimated Glomerular Filt Rate 36; Glucose 97 mg/dL (70-99); Osmolality Calculated 287 mOsm/kg (285-295); Potassium 4.4 mmol/L (3.5-5.1); Sodium 138 mmol/L (136-145)
== END 2023-03-24 10:46 | disposition home or self-care (01) ==
LOC: CHSLAB 10:47
PROVIDERS: PCP Nurse Practitioner Family; Visit Provider Nurse Practitioner Family
DX: M54.12 Radiculopathy, cervical region (principal)
CPT/HCPCS: 36415; 80048

== ENCOUNTER 2023-03-26 09:59 | Outpatient (CLI) | payer MEDICARE, SELFPAY ==
[2023-03-26 10:11] LABS: Appearance Urine Clear (Clear); Bilirubin Urine Negative (Negative); Blood Urine Negative (Negative); Color Urine Light Yellow (Yellow); Glucose Urine UA Negative (Negative); Ketones Urine Negative (Negative); Leukocyte Esterase Ur Negative (Negative); Nitrate Urine Negative (Negative); Protein Urine Negative (Negative); Urobilinogen Urine 0.2 mg/dL (0.2-1.0)
[2023-03-26 10:15] LABS: Add Urine Microscopic? NO
[2023-03-26 10:24] LABS: Creatinine Urine 96.27 mg/dL (40-278); MALB Creatinine Ratio 13.5 mg/g (0-30); Microalbumin Urine Random < 13.0 mg/L
== END 2023-03-26 10:00 | disposition home or self-care (01) ==
LOC: CHSLAB 10:00
PROVIDERS: PCP Nurse Practitioner Family; Visit Provider Nurse Practitioner Family
DX: N39.0 Urinary tract infection, site not specified (principal); R79.89 Other specified abnormal findings of blood chemistry
CPT/HCPCS: 81003; 82043

== ENCOUNTER 2023-04-07 09:16 | Outpatient (CLI) | payer MEDICARE, SELFPAY ==
[2023-04-07 09:30] LABS: Appearance Urine Clear (Clear); Bilirubin Urine Negative (Negative); Color Urine Light Yellow (Yellow); Glucose Urine UA Negative (Negative); Ketones Urine Negative (Negative); Leukocyte Esterase Ur 1+ (Negative); Nitrate Urine Negative (Negative); Protein Urine Negative (Negative); Urobilinogen Urine 0.2 mg/dL (0.2-1.0)
[2023-04-07 09:35] LABS: Add Urine Microscopic? YES; Bacteria Urine 1+ /hpf; Blood Urine Trace-lysed (Negative); RBC Urine 0-2 /hpf (0-2); Squamous Epithelial Cell Urine Few /hpf (Few); WBC Urine 16-20 /hpf (0-3)
== END 2023-04-07 09:17 | disposition home or self-care (01) ==
LOC: CHSLAB 09:18
PROVIDERS: PCP Nurse Practitioner Family; Visit Provider Nurse Practitioner Family
DX: R39.9 Unspecified symptoms and signs involving the genitourinary system (principal)
CPT/HCPCS: 81001; 87077; 87086; 87088; 87186

== ENCOUNTER 2023-04-09 10:06 | Outpatient (CLI) | payer MEDICARE, SELFPAY ==
--- NOTE | ~2023-04-09 | XR_ITS ---
EXAMINATION: XR abdomen/kub 1V DATE: 04/09/2023 10:19 INDICATION: Repeated urinary tract infections. Assess for nephrolithiasis TECHNIQUE: A supine view of the abdomen on 2 radiographs was obtained. COMPARISON: None FINDINGS: There are several calcifications in left upper quadrant which appear to project peripheral to the mar gins of the renal shadow likely a combination of splenic granulomata, atherosclerotic calcifications along the splenic artery and costochondral calcifications. No calcifications identified course of the renal shadows or projecting along the course of ureters to suggest urolithiasis. A few tiny phleboli ths in the pelvis. L2 compression fracture. Severe spondylosis lumbosacral junction. Normal bowel gas pattern. IMPRESSION: 1. No evident urolithiasis. Reviewed, dictated and finalized at location A. REPRESENTATIVE IMPRESSION: 1. No evident urolithiasis.
== END 2023-04-09 10:07 | disposition home or self-care (01) ==
LOC: CHSIMG 10:08
PROVIDERS: PCP Nurse Practitioner Family; Visit Provider Nurse Practitioner Family
DX: R39.9 Unspecified symptoms and signs involving the genitourinary system (principal)
CPT/HCPCS: 74018

== ENCOUNTER 2023-04-11 09:13 | Outpatient (CLI) | payer MEDICARE, SELFPAY ==
--- NOTE | ~2023-04-11 | MR_ITS ---
MRI of the cervical spine Clinical History: Radiculopathy Technique: Axial T2-weighted and gradient images, and sagittal T1-weighted, T2-weighted, and STIR helen ges were acquired. Following intravenous administration of 10 cc MultiHance gadolinium, T1-weighted f at-sat imaging was performed in the axial and sagittal planes. Findings: No acute fracture identified in the cervical spine. There is 4 mm anterolisthesis of C4 ove r C5. There is 2 mm anterolisthesis of C5 over C6. No suspicious bone marrow signal abnormality seen. At C2-C3, there is no disc bulge or herniation. There is mild bilateral facet arthropathy and probabl e mild bilateral neural foraminal narrowing. No central canal stenosis or cord compression. At C3-C4, there is minimal disc bulge. There is bilateral facet arthropathy, left worse than right, w ith bilateral neural foraminal narrowing. At C4-C5, there is no significant disc bulge or herniation. There is mild facet arthropathy bilateral ly with probable preservation neural foramina. At C5-C6, there is no disc bulge or herniation. No central canal stenosis or cord compression. There is left neural foraminal narrowing with prominent left facet arthropathy. Right neural foramen preser marcus. At C6-C7, there is left neural foraminal narrowing, with probable left foraminal disc extrusion. No c entral canal stenosis or cord compression. No right neural foraminal narrowing. No abnormal signal seen in the spinal cord. Paravertebral soft tissues are unremarkable. No abnormal postcontrast enhancement identified. Impression: Suspected left foraminal disc extrusion at C6-C7 with associated left neural foraminal narrowing. Additional multilevel neural foraminal narrowing, as detailed above. 4 mm anterolisthesis of C4 over C5. 2 mm anterolisthesis of C5 over C6. Reviewed, dictated and finalized at [facility]. DELIER MAKER Impression: Suspected left foraminal disc extrusion at C6-C7 with associated left neural fo raminal narrowing. Additional multilevel neural foraminal narrowing, as detailed above. 4 mm anterolisthesis of C4 over C5. 2 mm anterolisthesis of C5 over C6.
== END 2023-04-11 09:14 | disposition home or self-care (01) ==
LOC: CHSIMG 09:14
PROVIDERS: PCP Nurse Practitioner Family; Visit Provider Nurse Practitioner Family
DX: M54.12 Radiculopathy, cervical region (principal); M43.12 Spondylolisthesis, cervical region
CPT/HCPCS: 72156; A9577

== ENCOUNTER 2023-04-13 09:31 | Outpatient (CLI) | payer MEDICARE, SELFPAY ==
--- NOTE | ~2023-04-13 | MMUS_ITS ---
EXAMINATION: MM diagnostic blaine LT w louis, US breast LT complete HISTORY: Follow-up left breast asymmetry TECHNIQUE: Additional 3-D tomosynthesis images of the left breast were performed and synthetic 2-D im ages were generated. CAD analysis was submitted and interpreted. High resolution complete left breast ultrasound was performed. COMPARISON: Comparison to multiple prior studies sequentially, with oldest reviewed study dated 07/2018. BREAST PARENCHYMAL COMPOSITION: Breast composed of scattered areas of fibroglandular density FINDINGS: MAMMOGRAPHIC FINDINGS: The left breast is stable. Asymmetries in the outer aspect of the left breast are not significantly c hanged dating back to 12/02/2018. ULTRASOUND: Complete US of all 4 quadrants of the left breast and retroareolar region was reviewed. Mildly promin ent ducts at the 2:00 position. No suspicious masses in the left breast to suggest malignancy. IMPRESSION: 1. No evidence for malignancy in the left breast. 2. Routine yearly screening mammogram and regular clinical breast examination are recommended. BI-RADS CATEGORY 2 - BENIGN FINDINGS Reviewed, dictated and finalized at location A. O CLERK IMPRESSION: 1. No evidence for malignancy in the left breast. 2. Routine yearly screening mammogram and regular clinical breast examination a re recommended. BI-RADS CATEGORY 2 - BENIGN FINDINGS
== END 2023-04-13 09:32 | disposition home or self-care (01) ==
LOC: CHSIMG 09:32
PROVIDERS: PCP Family Medicine; Visit Provider Family Medicine
DX: R92.8 Other abnormal and inconclusive findings on diagnostic imaging of breast (principal)
CPT/HCPCS: 76641; 77061; 77065; G0279

== ENCOUNTER 2023-04-23 11:37 | Outpatient (CLI) | payer MEDICARE, SELFPAY ==
[2023-04-23 12:00] LABS: Appearance Urine Clear (Clear); Bilirubin Urine Negative (Negative); Blood Urine Trace-Intact (Negative); Color Urine Light Yellow (Yellow); Glucose Urine UA Negative (Negative); Ketones Urine Negative (Negative); Leukocyte Esterase Ur 1+ (Negative); Nitrate Urine Negative (Negative); Protein Urine Negative (Negative); Specific Grav Ur 1.015 (1.010-1.020); Urobilinogen Urine 0.2 mg/dL (0.2-1.0)
[2023-04-23 12:06] LABS: Add Urine Microscopic? YES; Bacteria Urine 3+ /hpf; RBC Urine 0-2 /hpf (0-2); Squamous Epithelial Cell Urine Rare /hpf (Few); WBC Urine 31-50 /hpf (0-3)
== END 2023-04-23 11:38 | disposition home or self-care (01) ==
LOC: CHSLAB 11:39
PROVIDERS: PCP Nurse Practitioner Family; Visit Provider Nurse Practitioner Family
DX: R39.9 Unspecified symptoms and signs involving the genitourinary system (principal); N39.0 Urinary tract infection, site not specified
CPT/HCPCS: 81001; 87077; 87086; 87088; 87186

== ENCOUNTER 2023-05-13 11:26 | Outpatient (CLI) | payer MEDICARE, SELFPAY ==
[2023-05-13 11:36] LABS: Bilirubin Urine Negative (Negative); Blood Urine Negative (Negative); Color Urine Light Yellow (Yellow); Glucose Urine UA Negative (Negative); Ketones Urine Negative (Negative); Leukocyte Esterase Ur 2+ (Negative); Nitrate Urine Positive (Negative); Protein Urine Negative (Negative); Specific Grav Ur 1.015 (1.010-1.020); Urobilinogen Urine 0.2 mg/dL (0.2-1.0)
[2023-05-13 11:41] LABS: Add Urine Microscopic? YES; Appearance Urine Cloudy (Clear); Bacteria Urine 4+ /hpf; RBC Urine None seen /hpf (0-2); Squamous Epithelial Cell Urine Few /hpf (Few); WBC Urine 51-100 /hpf (0-3)
== END 2023-05-13 11:27 | disposition home or self-care (01) ==
LOC: CHSLAB 11:27
PROVIDERS: PCP Nurse Practitioner Family; Visit Provider Nurse Practitioner Family
DX: N39.0 Urinary tract infection, site not specified (principal)
CPT/HCPCS: 81001

== ENCOUNTER 2023-05-19 09:00 | Outpatient (CLI) | payer MEDICARE, SELFPAY ==
--- NOTE | ~2023-05-19 | US_ITS ---
EXAMINATION: US renal BI DATE: 05/19/2023 09:21 INDICATION: Chronic kidney disease TECHNIQUE: Multiple ultrasound grayscale images of the kidneys were obtained. COMPARISON: None. FINDINGS: The right kidney measures 9.0 x 4.8 x 5.3 cm. The left kidney measures 9.5 x 3.5 x 5.5 cm. The kidney s demonstrate normal echogenicity. There is no hydronephrosis in either kidney. No stones identified . The bladder is normal. IMPRESSION: 1. Normal kidneys without hydronephrosis. Reviewed, dictated and finalized at location A. T OFFICE ASSISTANT
[2023-05-19 11:23] LABS: Hematocrit 37.3 % (35.0-42.0); Hemoglobin 12.3 g/dL (11.7-13.8); Mean Corpuscular Hemoglobin 30.6 pg (27.0-31.0); Mean Corpuscular Volume 92.8 fL (78.0-102.0); Mean Platelet Volume 9.8 fl (9.2-11.8); Platelet Count Result 163 K/mm3 (150-420); Red Blood Count 4.02 M/mm3 (4.20-5.40); Red Cell Distribution Width 13.7 % (11.6-14.4); White Blood Count 6.2 K/mm3 (4.8-10.8)
[2023-05-19 11:31] LABS: Albumin Level 3.6 g/dL (3.4-5.0); Anion Gap 8 mmol/L (8-16); Blood Urea Nitrogen 14 mg/dL (7-18); Calcium 8.7 mg/dL (8.5-10.1); Carbon Dioxide 30 mmol/L (21-32); Chloride 100 mmol/L (98-108); Creatine Kinase 72 U/L (26-192); Estimated Glomerular Filt Rate 42; Glucose 104 mg/dL (70-99); Osmolality Calculated 286 mOsm/kg (285-295); Phosphorus 3.6 mg/dL (2.6-4.7); Sodium 138 mmol/L (136-145)
[2023-05-19 12:39] LABS: Erythrocyte Sedimentation Rate 36 mm/hr (0-20)
[2023-05-19 15:29] LABS: Creatinine Urine 45.86 mg/dL (40-278); Total Protein Urine Random 7.3 mg/dL (0.0-11.9); Ur Ttl Prot Creatinine Ratio 0.16 mg/mg (0-0.20)
[2023-05-21 11:46] LABS: Kappa\\Lambda Light Chains 0.71 (0.26-1.65); Lambda Light Chain 30.5 mg/L (5.7-26.3)
[2023-05-21 14:46] LABS: Complement Total CH50 >60 U/mL (31-60)
[2023-05-22 14:57] LABS: Parathyroid Intact 56 pg/mL (14-64)
[2023-05-26 10:45] LABS: Complement C3 151 mg/dL (83-193)
== END 2023-05-19 09:01 | disposition home or self-care (01) ==
LOC: CHSIMG 09:02
PROVIDERS: PCP Family Medicine; Visit Provider Internal Medicine Nephrology
DX: N18.9 Chronic kidney disease, unspecified (principal); E78.5 Hyperlipidemia, unspecified; J06.9 Acute upper respiratory infection, unspecified; I10 Essential (primary) hypertension
CPT/HCPCS: 36415; 76775; 80069; 82550; 82570; 83883; 83970; 84156; 85027; 85652; 86038; 86160; 86162; 86334

== ENCOUNTER 2023-05-22 09:20 | Outpatient (CLI) | payer MEDICARE, SELFPAY ==
[2023-05-22 14:32] LABS: Total Volume 24 Hour Urine 2200 ml; Urea Nitrogen 24 Hour Urine 7.3 g/Day (7-20)
[2023-05-26 12:31] LABS: Creat 24 Hr 1.19 g/24 h (0.50-2.15); Pro/Creat Ratio 74 mg/g creat (<150); Pro/Creat Ratio mg/mg 0.074 (<0.150); Protein,total, 24 Hr Ur 88 mg/24 h (<150)
== END 2023-05-22 09:21 | disposition home or self-care (01) ==
LOC: CHSLAB 09:21
PROVIDERS: PCP Family Medicine; Visit Provider Internal Medicine Nephrology
DX: E78.5 Hyperlipidemia, unspecified (principal); I12.9 Hypertensive chronic kidney disease with stage 1 through stage 4 chronic kidney disease, or unspecified chronic kidney disease; N18.9 Chronic kidney disease, unspecified
CPT/HCPCS: 81050; 84540; 86335

== ENCOUNTER 2023-07-30 13:08 | Outpatient (CLI) | payer MEDICARE, SELFPAY ==
--- NOTE | ~2023-07-30 | US_ITS ---
EXAMINATION: US renal BI DATE: 07/30/2023 13:52 INDICATION: Recurrent urinary tract infection TECHNIQUE: Multiple ultrasound grayscale images of the kidneys were obtained. COMPARISON: 05/19/2023 FINDINGS: The right kidney measures 9.1 x 3.9 x 5.1 cm. The left kidney measures 10.0 x 3.6 x 5.0 cm. The kidne ys demonstrate normal echogenicity. There is no hydronephrosis in either kidney. No stones identified . The bladder is normal. IMPRESSION: 1. Normal kidneys without hydronephrosis. Reviewed, dictated and finalized at location A.
== END 2023-07-30 13:09 | disposition home or self-care (01) ==
LOC: CHSIMG 13:09
PROVIDERS: PCP Family Medicine; Visit Provider Nurse Practitioner
DX: N39.0 Urinary tract infection, site not specified (principal)
CPT/HCPCS: 76775

== ENCOUNTER 2023-09-15 12:32 | Outpatient (NON) | payer MEDICARE, SELFPAY ==
[2023-09-15 12:44] LABS: Appearance Urine Clear (Clear); Bilirubin Urine Negative (Negative); Blood Urine Negative (Negative); Color Urine Yellow (Yellow); Glucose Urine UA Negative (Negative); Ketones Urine Negative (Negative); Leukocyte Esterase Ur Negative (Negative); Nitrate Urine Negative (Negative); Protein Urine Negative (Negative); Specific Grav Ur 1.015 (1.010-1.020); Urobilinogen Urine 0.2 mg/dL (0.2-1.0); pH Urine 5.5 (5.0-8.0)
[2023-09-15 12:53] LABS: Add Urine Microscopic? NO
== END 2023-09-15 12:33 | disposition home or self-care (01) ==
LOC: CHSLAB 12:33
PROVIDERS: Visit Provider Nurse Practitioner Family
DX: N39.0 Urinary tract infection, site not specified (principal)
CPT/HCPCS: 81003; 87086

== ENCOUNTER 2023-09-20 13:10 | Emergency (ER) | payer MEDICARE, SELFPAY ==
[2023-09-20 13:12] VITALS: BP 161/66; PULSE 77; RESP 20; TEMP 36.6; O2SAT 97
--- NOTE | 2023-09-20 13:12 | ED.UPPEXIN ---
HPI - Extremity Injury (Upper) General Chief Complaint: Extremity Problem,Nontraumatic Stated Complaint: left hand hematoma Time Seen by Provider: 09/20/23 13:12 History of Present Illness HPI narrative: Patient is a 78 year old female with history of a.fib, anticoagulated on eliquis here with left hand swelling. Patient is right handed. She notes that this morning around 9:00 AM she first noticed some swelling to the back of her left hand while she was cleaning out her pool. She then proceeded to mop her house. The swelling seemed to increase in size and this prompted her family to recommend she come into the ER for evaluation. Patient notes that she did not want to come into the ER to get seen but her family freaked her out. She has tried to apply ice without improvement. She has not taken any medications for the pain. She does not remember any obvious injuries. She last took her eliquis this morning. She follows with a associate professor of criminal justice out of [place], [place]. She had an ablation in January 2023, believes she has been out of a.fib since that time, is not sure if and when she will be advised to stop taking eliquis. She is right handed. Related Data Home Medications Medication Instructions Recorded Confirmed apixaban 5 mg tablet (Eliquis) 5 mg PO BIDAC 03/18/19 09/15/23 esomeprazole magnesium 20 mg 20 mg PO DAILY 04/29/19 09/15/23 capsule,delayed release (Nexium) aspirin 81 mg tablet 81 mg PO DAILY 10/27/20 09/15/23 metoprolol succinate 25 mg 25 mg PO ONCE 10/31/22 09/15/23 tablet,extended release 24 hr amlodipine 5 mg tablet 5 mg PO DAILY 05/18/23 09/15/23 d-mannose 500 mg capsule (AZO mg PO 09/15/23 09/15/23 D-Mannose) Allergies Allergy/AdvReac Type Severity Reaction Status Date / Time No Known Allergies Allergy Verified 09/20/23 13:12 Review of Systems Review of Systems: All systems reviewed & are unremarkable except as noted in HPI and below PMFSH Past Medical History Medical History Abdominal bloating Atrial fibrillation Breast cancer Chronic GERD Diarrhea Hyperlipidemia Hypertension Rheumatic fever Viral upper respiratory illness Surgical History Surgical History H/O mastectomy History of bladder surgery History of tonsillectomy Social History Social History Smoking status: Never smoker Alcohol intake: never Substance use: never Do You Feel Safe in your Home?: Yes Lack of Transportation: No Lack of Food: Never True Current Housing: I Have Housing Concerned About Future Housing: No Difficulty Paying Gas/Electric Bills: No Difficulty Paying for Meds: No Currently Unemployed: No Education: High School Diploma/GED Difficulty w/ Childcare or Family Care: No Living arrangements: with family Gender identity (if verbalized by the patient): Female Sexual Orientation (if Verbalized by the Patient): Straight or Heterosexual Exam Narrative: GENERAL: Well-appearing, well-nourished, and in no acute distress. NECK: Supple. CHEST: Clear to auscultation. No respiratory distress. HEART: Regular rate and rhythm. Normal peripheral pulses. ABDOMEN: Soft, nontender, nondistended. EXTREMITIES: Normal range of motion. No edema. SKIN: Warm, dry, no rash. 3x4 cm ecchymosis and swelling over the posterior aspect of the left hand without overlying skin breakdown consistent with hematoma. No surrounding erythema or warmth. Normal ROM of hand. Strong radial pulse with normal capillary refill into hand and finger tips. NEURO: No focal deficits. Alert and oriented x3. Course Course Emergency Course: Chart review performed. Patient here with swelling to her hand. Triage vitals show HTN, otherwise normal. PMH includes Afib, GERD, HTN, HLD. She appears to be on Eliquis and baby ASA. Patient seen and evaluated. Non toxic appea
[2023-09-20 13:58] VITALS: BP 161/66; PULSE 77; RESP 20; TEMP 36.6; O2SAT 97
== END 2023-09-20 13:58 | disposition home or self-care (01) ==
PROVIDERS: Emergency Provider Student in an Organized Health Care Education/Training Program; PCP Nurse Practitioner Family
DX: S60.222A Contusion of left hand, initial encounter (principal); I48.91 Unspecified atrial fibrillation; E78.5 Hyperlipidemia, unspecified; I10 Essential (primary) hypertension; Z79.01 Long term (current) use of anticoagulants; Z85.3 Personal history of malignant neoplasm of breast; X58.XXXA Exposure to other specified factors, initial encounter
CPT/HCPCS: 99281

== ENCOUNTER 2023-12-22 09:19 | Outpatient (CLI) | payer MEDICARE, SELFPAY ==
[2023-12-22 10:13] LABS: Anion Gap 7 mmol/L (4-12); Blood Urea Nitrogen 17 mg/dL (7-18); Calcium 9.1 mg/dL (8.5-10.1); Carbon Dioxide 30 mmol/L (21-32); Chloride 104 mmol/L (98-108); Estimated Glomerular Filt Rate 38; Glucose 107 mg/dL (70-99); Osmolality Calculated 293 mOsm/kg (285-295); Potassium 4.2 mmol/L (3.5-5.1); Sodium 141 mmol/L (136-145)
== END 2023-12-22 09:20 | disposition home or self-care (01) ==
LOC: CHSLAB 09:22
PROVIDERS: PCP Nurse Practitioner Family; Visit Provider Internal Medicine Nephrology
DX: N18.9 Chronic kidney disease, unspecified (principal)
CPT/HCPCS: 36415; 80048

== ENCOUNTER 2023-12-28 18:44 | Emergency (ER) | payer MEDICARE, SELFPAY ==
[2023-12-28] VITALS (42 sets, daily range): BP systolic 99–139; BP diastolic 62–108; PULSE 87–162; RESP 14–26; TEMP 36.2; O2SAT 90–97
--- NOTE | 2023-12-28 18:50 | ECG_ITS ---
Test Date: 2023-12-28 18:53:06 Measurements Intervals [place] Rate: 143 P: 0 TX: 0 QRS: 26 QRSD: 88 T: -7 QT: 279 QTc: 431 Interpretive Statements ATRIAL FIBRILLATION WITH RAPID VENTRICULAR RESPONSE ST-T WAVE ABNORMALITY IN DIFFUSE LEADS- CONSIDER ISCHEMIA BASELINE ARTIFACT- I, III, AVR, AVL, AVF ABNORMAL ECG No previous ECG available for comparison Electronically Signed On 12-28-2023 20:01:33 CDT by Sid Medrano D.O.
--- NOTE | 2023-12-28 18:54 | ED.GENADULT ---
HPI - General Adult General Chief complaint: Nausea/Vomiting/Diarrhea Stated complaint: high heart rate Time Seen by Provider: 12/28/23 18:47 History of Present Illness HPI narrative: Deedee is a 78F with a PMH of Afib s/p ablation, HTN, breast cancer, HTN, GERD, OA that presented to the ED with palpitations. It feels like previous episodes of Afib. No CP, dyspnea, N/V or lightheadedness. Symptoms started at 1700. Related Data Home Medications Medication Instructions Recorded Confirmed apixaban 5 mg tablet (Eliquis) 5 mg PO BIDAC 03/18/19 12/28/23 esomeprazole magnesium 20 mg 20 mg PO DAILY 04/29/19 12/28/23 capsule,delayed release (Nexium) aspirin 81 mg tablet 81 mg PO DAILY 10/27/20 12/28/23 metoprolol succinate 25 mg 25 mg PO ONCE 10/31/22 12/28/23 tablet,extended release 24 hr amlodipine 5 mg tablet 5 mg PO DAILY 05/18/23 12/28/23 d-mannose 500 mg capsule (AZO 500 mg PO DAILY 09/15/23 12/28/23 D-Mannose) famotidine 10 mg tablet 20 mg PO DAILY 12/28/23 12/28/23 Allergies Allergy/AdvReac Type Severity Reaction Status Date / Time No Known Allergies Allergy Verified 12/28/23 18:52 Review of Systems Review of Systems: All systems reviewed & are unremarkable except as noted in HPI and below PMFSH Past Medical History Medical History Abdominal bloating Atrial fibrillation Breast cancer Chronic GERD Diarrhea Hyperlipidemia Hypertension Rheumatic fever Viral upper respiratory illness Surgical History Surgical History H/O mastectomy History of bladder surgery History of tonsillectomy Social History Social History Smoking status: Never smoker Alcohol intake: never Substance use: never Do You Feel Safe in your Home?: Yes Lack of Transportation: No Lack of Food: Never True Current Housing: I Have Housing Concerned About Future Housing: No Difficulty Paying Gas/Electric Bills: No Difficulty Paying for Meds: No Currently Unemployed: No Education: High School Diploma/GED Difficulty w/ Childcare or Family Care: No Living arrangements: with family Gender identity (if verbalized by the patient): Female Sexual Orientation (if Verbalized by the Patient): Straight or Heterosexual Exam Const: General: cooperative, healthy appearing, comfortable, no acute distress, well developed, alert, awake and Physically active Orientation/consciousness: oriented to person, oriented to place and oriented to time HENMT: Head: normal to inspection, normocephalic and atraumatic Ears: hearing grossly normal bilaterally and external ears normal Face/Nose/Sinus: Normal external nose present Eyes: General: appearance normal, both eyes and all related structures Periorbital: periorbital findings normal Sclera: sclerae normal Pupils: Equal, round and reactive pupils present Neck: Neck: normal visual inspection Chest: Chest palpation & inspection: normal inspection of the chest Resp: Effort & Inspection: normal respiratory effort, able to speak in complete sentences and no respiratory distress Auscultation: clear to auscultation bilaterally Cardio: Jugular venous distension: no JVD Other: tachycardia, regular Skin: General skin exam: normal color and no rashes or lesions noted Neuro: General: oriented to person, oriented to place and oriented to time Cranial nerves: Yes Equal, round and reactive pupils present Extrem: General: normal to inspection Course Course Emergency Course: Ordered labs and EKG EKG showed Afib w/ RVR with a rate of 143. Ordered diltiazem and zofran. CBC was largely unremarkable. Chemistries showed mildly elevated glucose and stable CKD. Troponin and BNP were wnl. She was started on a diltiazem drip which brought HR down to 120. Pressures were around 100-110 systolic so digoxin was giv
[2023-12-28 19:01] LABS: Basophils Absolute Auto 0.04 K/mm3 (0.00-0.10); Basophils Percent Auto 0.7 % (0.0-1.0); Eosinophils Absolute Auto 0.19 K/mm3 (0.02-0.50); Eosinophils Percent Auto 3.6 % (1.0-6.0); Hematocrit 37.6 % (35.0-42.0); Hemoglobin 12.6 g/dL (11.7-13.8); Immature Granulocyte Absolute 0.02 K/mm3 (0.00-0.00); Immature Granulocyte Percent A 0.4 % (0.0-0.0); Lymphocytes Absolute Auto 1.62 K/mm3 (1.10-4.50); Lymphocytes Percent Auto 30.3 % (18.0-42.0); Mean Corpuscular HGB Conc 33.5 g/dL (32-36); Mean Corpuscular Hemoglobin 30.5 pg (27.0-31.0); Mean Platelet Volume 9.5 fl (9.2-11.8); Monocytes Absolute Auto 0.69 K/mm3 (0.10-0.90); Monocytes Percent Auto 12.9 % (2.0-11.0); Neutrophils Absolute Auto 2.79 K/mm3 (1.70-7.20); Neutrophils Percent Auto 52.1 % (50.0-70.0); Platelet Count Result 171 K/mm3 (150-420); Red Blood Count 4.13 M/mm3 (4.20-5.40); Red Cell Distribution Width 12.3 % (11.6-14.4); White Blood Count 5.4 K/mm3 (4.8-10.8)
[2023-12-28] MEDS: ONDANSETRON INJ 4 MG/2 ML VIAL IV PUSH (19:07)
[2023-12-28] MEDS: dilTIAZem HCl INJ 25 MG/5 ML VIAL 10 MG IV PUSH (19:08)
[2023-12-28] MEDS: dilTIAZem 100 MG/100 ML 100 MG/100 ML BAG IV CONT (19:10)
[2023-12-28 19:25] LABS: Alanine Aminotransferase 21 U/L (14-59); Albumin Level 3.7 g/dL (3.4-5.0); Alkaline Phosphatase 100 U/L (46-116); Anion Gap 7 mmol/L (4-12); Aspartate Amino Transferase 14 U/L (15-37); Bilirubin,Total 1.1 mg/dL (0.00-1.00); Blood Urea Nitrogen 23 mg/dL (7-18); Calcium 8.8 mg/dL (8.5-10.1); Carbon Dioxide 30 mmol/L (21-32); Chloride 103 mmol/L (98-108); Estimated CRCL calculation 23 ml/min; Estimated Glomerular Filt Rate 32; Glucose 148 mg/dL (70-99); NT Pro B Type Natriuretic Pept 334 pg/mL (0-450); Osmolality Calculated 296 mOsm/kg (285-295); Potassium 3.8 mmol/L (3.5-5.1); Sodium 140 mmol/L (136-145); Thyroid Stimulating Hormone 0.79 uIU/mL (0.36-3.74); Total Protein 7.1 g/dL (6.4-8.2)
[2023-12-28] MEDS: DIGOXIN INJ 250 MCG/ML 2 ML AMP (*BKC) IV PUSH (21:03)
[2023-12-28] MEDS: METOPROLOL TARTRATE INJ 5 MG/5 ML VIAL IV PUSH (21:47)
[2023-12-29] VITALS (8 sets, daily range): BP systolic 102–140; BP diastolic 51–99; PULSE 80–117; RESP 15–18; O2SAT 91–97
[2023-12-29] MEDS: dilTIAZem 100 MG/100 ML 100 MG/100 ML BAG 10 MG (01:09)
== END 2023-12-29 01:25 | disposition short-term general hospital (02) ==
PROVIDERS: Emergency Provider Family Medicine; PCP Family Medicine
DX: I48.20 Chronic atrial fibrillation, unspecified (principal); I10 Essential (primary) hypertension; E78.5 Hyperlipidemia, unspecified; Z85.3 Personal history of malignant neoplasm of breast; Z79.01 Long term (current) use of anticoagulants; Z79.899 Other long term (current) drug therapy; Z79.82 Long term (current) use of aspirin
CPT/HCPCS: 36415; 80053; 83880; 84443; 84484; 85025; 93005; 96365; 96366; 96375; 99285; J1160; J2405

== ENCOUNTER 2024-06-09 08:45 | Outpatient (CLI) | payer MEDICARE, SELFPAY ==
[2024-06-09 08:59] LABS: Hematocrit 38.7 % (35.0-42.0); Hemoglobin 12.5 g/dL (11.7-13.8); Mean Corpuscular HGB Conc 32.3 g/dL (32-36); Mean Corpuscular Hemoglobin 29.1 pg (27.0-31.0); Mean Platelet Volume 9.1 fl (9.2-11.8); Platelet Count Result 202 K/mm3 (150-420); Red Cell Distribution Width 13.2 % (11.6-14.4); White Blood Count 6.4 K/mm3 (4.8-10.8)
[2024-06-09 09:12] LABS: Creatinine Urine 124.58 mg/dL (40-278); Total Protein Urine Random 23.5 mg/dL (0.0-11.9); Ur Ttl Prot Creatinine Ratio 0.19 mg/mg (0-0.20)
[2024-06-09 09:25] LABS: Albumin Level 4.1 g/dL (3.4-5.0); Anion Gap 10 mmol/L (4-12); Blood Urea Nitrogen 23 mg/dL (7-18); Calcium 9.4 mg/dL (8.5-10.1); Carbon Dioxide 26 mmol/L (21-32); Chloride 104 mmol/L (98-108); Estimated Glomerular Filt Rate 36; Glucose 98 mg/dL (70-99); Osmolality Calculated 293 mOsm/kg (285-295); Potassium 4.5 mmol/L (3.5-5.1); Sodium 140 mmol/L (136-145)
--- OUTSIDE RECORDS SUMMARY | 2024-06-09 09:30 | XMS_ITS | Encounter Summary ---
Author Organization [facility] Address Formerly [facility] [place] [address] Care Team Providers Care Funeral Home Manager Name Role Phone Patricia Simon MD Primary Care Provider Alexis Logan MD Unavailable UnavailBowen Kimball MD Primary Care Provider [phone] Kentrell Blank MD Unavailable UnavailPrerna Lauren NP Unavailable Unavailable Homar Albarado MD Primary Care Provider Porfirio Robert DO Primary Care Provider [phone] Messi Yanez MD Unavailable [phone] Anni Pinzon MD Unavailable Elier Rosales MD Unavailable [phone] Unique Jaramillo PA-C Unavailable + [phone] Encounter Details Date Type Department Care Team (Late st Contact Info) Description 03/09/2018 Abstract [facility] [address] [place] [address] Alexis Spears MD Social History Tobacco Use Types Packs/Day Years Used Date Smoking Tobacco: Never Smokeless Tobacco: Never Comments Unknown Sex and Gender Information Value Date Recorded Sex Assigned at Not on file Legal Sex Female 7:26 PM CDT Gender Identity Not on file Sexual Orientation Not on file documented as of this encounter Functional Status * RETIRED Are you deaf or do you have serious difficulty hearing Answer Date of Assessment Author Status No 09/24/2017 5:34 PM CDT Activ e * RETIRED Are you blind or do you have serious difficulty seeing, even when wearing glasses? Answer Date of Assessment Author Status No 09/24/2017 5:34 PM CDT Activ e * Do you have serious difficulty walking or climbing stairs? Answer Date of Assessment Author Status No 09/24/2017 5:34 PM RODNEYT Micaela Bowman RN Active * Do you have difficulty dressing or bathing? Answer Date of Assessment Author Status No 09/24/2017 5:34 PM RODNEYT Micaela Bowman RN Active * Because of a physical, mental, or emotional condition, do you have difficulty doing errands alone such as visiting a doctor's office or shopping? Answer Date of Assessment Author Status No 09/24/2017 5:34 PM RODNEYT Micaela Bowman RN Active documented as of this encounter Mental Status * Because of a physical, mental, or emotional condition, do you have serious difficulty concentrating, remembering, or making decisions? Answer Entry Date Author Status No 09/24/2017 5:34 PM RODNEYT Micaela Bowman RN Active documented in this encounter Plan of Treatment Upcoming Encounters Date Type Department Care Team (Late st Contact Info) Description 09/07/2024 10:00 AM CDT Office Visit [facility] [place] [phone] Unique Jaramillo PA-C [address] [place], [place] [address] 04/21/2025 9:30 AM HEALTH FACILITIES SURVEYOR Office Visit [facility] [address] [place] [phone] Libia Doyle, GRIS, PUBLIC TRANSIT BUS DRIVER-C [address] [facility] [address] [phone] documented as of this encounter Procedures Procedure Name Priority Date/Time Associated Diagnosis Comments LIPID PANEL Routine 03/09/2018 documented in this encounter Results * LIPID PANEL (03/09/2018) CHOLESTEROL 155 HDL 64 TRIGLYCERIDES 166 CHOL/HDL RATIO 2.4 LDL (CALCULATED) 58 03/09/2018 us Doc [facility] Abstract LABORATORY Final Result documented in this encounter Visit Diagnoses Not on filedocumented in this encounter Care Teams Funeral Home Manager Relationship Specialty Start Date End Date Patricia Simon MD PCP - General SURGERY 09/23/17 07/11/18 Bowen Márquez MD [address] [place] [address] PCP - General FAMILY PRACTICE 07/12/18 06/08/19 Homar Albarado MD [address] [place] [id number] PCP - General FAMILY PRACTICE 06/09/19 06/10/21 Porfirio Robert DO [address] [place] [id number] PCP - General FAMILY PRACTICE 06/11/21 Alexis Spears MD Alexis Mold Shaker CARDIOVASCULAR DISEASE 10/02/17 10/03/23 Kentrell Blank MD [address] [place] [address] Consulting Physician CLINICAL CARDIAC ELECTROPHYSIOLOGY 07/29/18 08/04/22 Prerna Renae NP [address] [place] [address] Referring Physician CARDIOVASCULAR DISEASE 11/23/18 Messi Yane[place] [address] Consulting Physician CLINICAL CARDIAC ELECTROPHYSIOLOGY 08/05/22 Anni Pinzon MD [address] [place] [address] Consulting Physician CARDIOVASCULAR DISEASE 10/04/23 Elier Rosales MD [address] [place], [place] [address] Consulting Physician INTERVENTIONAL CARDIOLOGY 11/05/23 Unique Jaramillo PA-C [address] [place] [address] Referring Physician PHYSICIAN DESIGN DRAFTER CHIEF 02/26/24 documented as of this encounter
--- OUTSIDE RECORDS SUMMARY | 2024-06-09 09:30 | XMS_ITS | Clinical Summary ---
Author Organization [facility] Address [address] [place] [address] Phone Care Team Providers Care News Library Director Name Role Phone Ortega Santos APRN, SHAKA Primary Care Provider + Bowen Vu APRN, CNP Unavailable [phone] Alexis Chase MD Unavailable [phone] Allergies No known active allergies Medications amLODIPine (NORVASC) 5 MG Tablet Take 5 mg by mouth daily. 05/08/2023 Active esomeprazole (NexIUM) 20 MG CAPSULE DELAYED RELEASE Take 20 mg by mouth. Active benzonatate (TESSALON) 100 MG Capsule 100 MG ORALLY THREE TIMES A DAY NEEDED FOR COUGH 05/19/2023 Active atorvastatin (LIPITOR) 40 MG Tablet TAKE 1 TABLET BY MOUTH NIGHTLY AT BEDTIME Active apixaban (ELIQUIS) 5 MG Tablet Take 5 mg by mouth. 05/08/2023 Active famotidine (PEPCID) 20 MG Tablet Take 20 mg by mouth. 03/01/2021 Active metoprolol Succinate (TOPROL-XL) 25 MG TABLET SR 24 HR Take 25 mg by mouth daily. 05/08/2023 Active D-Mannose 500 MG Capsule Take 1,000 mg by mouth 2 times daily. Active Active Problems No known active problems Social History Tobacco Use Types Packs/Day Years Used Date Smoking Tobacco: Never Smokeless Tobacco: Never Tobacco Cessation:Counseling Given: Not Answered Comments No Sex and Gender Information Value Date Recorded Sex Assigned at Female 06/14/2023 1:47 PM CDT Legal Sex Female 1:50 PM CHILDREN'S COUNSELOR Gender Identity Female 06/14/2023 1:47 PM CDT Sexual Orientation Straight 06/14/2023 1: 47 PM CDT Last Filed Vital Signs Vital Sign Reading Time Taken Comments Blood Pressure 157/78 02/22/2024 9:26 AM CHILDREN'S COUNSELOR Pulse 66 02/22/2024 9:26 AM CHILDREN'S COUNSELOR Temperature 36.6 C (97.8 F) 08/17/2023 8:50 AM CDT Respiratory Rate 20 02/22/2024 9:26 AM CHILDREN'S COUNSELOR Oxygen Saturation 99% 02/22/2024 9:26 AM CHILDREN'S COUNSELOR Inhaled Oxygen Concentration - - Weight 64.4 kg (142 lb) 02/22/2024 9:26 AM CHILDREN'S COUNSELOR Height 160 cm (5' 3 ) 02/22/2024 9:26 AM CHILDREN'S COUNSELOR Body Mass Index 25.15 02/22/2024 9:26 AM CHILDREN'S COUNSELOR Plan of Treatment Upcoming Encounters Date Type Department Care Team (Late st Contact Info) Description 08/29/2024 10:00 AM CDT Office Visit [facility] [address] [place] [address] Bowen Vu, SUPERVISOR ELECTRONICS ASSEMBLY, ACID TANK LINER [address] [place] [address] Health Maintenance Due Date Last Done Comments DEXA Bone Density 1945 Hepatitis C Virus (HCV) Screening 1945 TdaP Immunization 1945 Zoster Immunization (1 of 2) 01/07/1996 Pneumococcal Immunization (50+ years) (2 of 2 - PCV) 09/05/2020 09/06/2019 Respiratory Syncytial Virus (RSV) Immunization (Adult) (1 - 1-dose 75+ series) 2021 SARS-COV-2 Immunization ( season) 2024 2024, 12/16/2022, 02/26/2022, Additional history exists Influenza Immunization Completed , 12/16/2022, 02/26/2022, Additional history exists Hepatitis B Immunization Aged Out No longer eligible based on patient's age to complete this topic Meningococcal Immunization (ACWY) Aged Out No longer eligible based on patient's age to complete this topic Rotavirus Immunization Aged Out No lo nger eligible based on patient's age to complete this topic Insurance MEDICARE C [employer]ET[employer] Care Teams News Library Director Relationship Specialty Start Date End Date Ortega Santos APRN, ACID TANK LINER [address] [place] [address] PCP - General Advanced Practice Nurse 04/28/23 Bowen Vu APRN, ACID TANK LINER [address] [place] [address] Nurse Practitioner Advanced Practice Nurse 07/28/23 Alexis Chase MD [facility] [facility] [address] [address] Consulting Physician Urology 08/17/23
--- OUTSIDE RECORDS SUMMARY | 2024-06-09 09:30 | XMS_ITS | Referral Summary ---
Author Organization [facility] Address [address] [place] [address] Care Team Providers Care Scientific Editor Name Role Phone Porfirio Robert DO Primary Care Provider Social History Tobacco Use Types Packs/Day Years Used Date Smoking Tobacco: Never Assessed Personal Safety Answer Date Recorded Getting School Help Needed Not on file 05/24 Comments Unknown Sex and Gender Information Value Date Recorded Sex Assigned at Not on file Legal Sex Female 8:01 PM SHOE TREER Gender Identity Female 01/01/2022 7:17 PM CDT Sexual Orientation Straight 01/01/2022 7: 17 PM CDT Plan of Treatment Not on file Insurance MEDICARE SOLUTIONS Care Teams Scientific Editor Relationship Specialty Start Date End Date Porfirio Robert DO [address] [place] [address] PCP - General Family Medicine 12/30/21
--- OUTSIDE RECORDS SUMMARY | 2024-06-09 09:30 | XMS_ITS | Clinical Summary ---
Author Organization [facility] Address [address] [place] [address] Care Team Providers Care Websphere Commerce Architect Name Role Phone Porfirio Robert DO Primary Care Provider Social History Tobacco Use Types Packs/Day Years Used Date Smoking Tobacco: Never Assessed Personal Safety Answer Date Recorded Getting School Help Needed Not on file 05/24 Comments Unknown Sex and Gender Information Value Date Recorded Sex Assigned at Not on file Legal Sex Female 8:01 PM SLEEPING CAR CONDUCTOR Gender Identity Female 01/01/2022 7:17 PM CDT Sexual Orientation Straight 01/01/2022 7: 17 PM CDT Plan of Treatment Health Maintenance Due Date Last Done Comments Depression Screening 1945 Fall Risk Assessment 1945 Hepatitis C Screening 1945 Osteoporosis Screening-Bone Density Scan 1945 DTaP/Tdap/Td Vaccine (1 - Tdap) 1957 Hepatitis B Screening 01/07/1964 Zoster Vaccine (1 of 2) 01/07/1996 Well Visit 65+ 2011 Pneumococcal vaccine 65+ (2 of 2 - PCV) 09/05/2020 09/06/2019 Covid-19 Vaccine (2023-2 5 season) 2023 07/26/2021, 01/08/2021, 05/25/2020, Additional history exists Influenza Vaccine (#1) 2023 12/31/2020 Insurance MEDICARE SOLUTIONS [facility] Address: [facility] [address] [place] [address] Care Teams Websphere Commerce Architect Relationship Specialty Start Date End Date Porfirio Robert DO [address] [place] [address] PCP - General Family Medicine 12/30/21
--- OUTSIDE RECORDS SUMMARY | 2024-06-09 09:31 | XMS_ITS | Clinical Summary ---
Author Organization [facility] Address [address] [place] [address] Care Team Providers Care Independent Driver Name Role Phone Porfirio Robert DO Primary Care Provider [phone] Messi Yanez MD Unavailable [phone] Elier Rosales MD Unavailable Unique Jaramillo PA-C Unavailable [phone] Allergies No known active allergies Medications esomeprazole 20 MG capsule Take 1 capsule (20 mg total) by mouth every morning before breakfast. Active aspirin 81 MG tablet Take 1 tablet (81 mg total) by mouth daily. Active apixaban (ELIQUIS) 5 MG tablet Take 1 tablet (5 mg total) by mouth 2 (two) times daily. 60 tablet 05/08/2023 Active atorvastatin (LIPITOR) 40 MG tablet Take 1 tablet (40 mg total) by mouth nightly at bedtime. 30 tablet 11 05/08/2023 Active dronedarone (MULTAQ) 400 MG tablet Take 1 tablet (400 mg total) by mouth 2 (two) times daily with meals. 180 tablet 1 02/01/2024 Active amLODIPine (NORVASC) 5 MG tablet Take 1 tablet (5 mg total) by mouth daily. 90 tablet 3 04/13/2024 Active metoprolol succinate ER (TOPROL-XL) 25 MG 24 hr tablet Take 1 tablet (25 mg total) by mouth daily. 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 03/30/2018 Hyperlipidemia 09/23/2017 Paroxysmal atrial fibrillation ([facility]) 09/23/2017 Encounters Date Type Department Care Team Description 05/03/2024 Telephone [facility] [address] [place] [address] Messi Yanez MD Results 04/13/2024 10:30 AM SCIENCE SPECIALIST Telephone [facility] [address] [place] [address] Messi Yanez MD Holter Monitor 04/13/2024 9:45 AM SCIENCE SPECIALIST Office Visit [facility] [address] [place] [address] Elier Rosales MD Follow Up 04/13/2024 Travel from Last 3 Months Family History Medical History Relation Comments Parkinson's Disease Father Stroke Mother Relation Status Comments Father Mother Social History Tobacco Use Types Packs/Day Years Used Date Smoking Tobacco: Never Smokeless Tobacco: Never Alcohol Use Standard Drinks/Week Comments Never 0 (1 standard drink = 0.6 oz pur e alcohol) [facility] Utilities Answer Date Recorded In the past 12 months has [facility] [employer], gas, oil, or water [employer] threatened to shut off services in your home? No 12/29/2023 Humiliation, Afraid, Rape, and Kick questionnair e Answer Date Recorded Within the last year, have y ou been afraid of your partner or ex-partner? No 12/29/2023 Within the last year, have y ou been humiliated or emotionally abused in other ways by your partner or ex-partner? No Within the last year, have y ou been kicked, hit, slapped, or otherwise physically hurt by your partner or ex-partner? No 12/29/2023 Within the last year, have y ou been raped or forced to have any kind of sexual activity by your partner or ex-partner? No 12/29/2023 AUDIT-C Answer Date Recorded Frequency of Alcohol Consumption Never 07/12/2018 Average Number of Drinks Not on file 019 Frequency of Binge Drinking Not on file 06/28 Overall Financial Resource Strain (CARDIA) Answe r Date Recorded How hard is it for you to pa y for the very basics like food, housing, medical care, and heating? Not hard at all 12/29/2023 Hunger Vital Sign Answer Date Recorded Within the past 12 months, y ou worried that your food would run out before you got the money to buy more. Never true 12/29/19 24 Within the past 12 months, t he food you bought just didn't last and you didn't have money to get more. Never true 12/29/2023 PRAPARE - Transportation Answer Date Re corded In the past 12 months, has l ack of transportation kept you from medical appointments or from getting medications? No 03/2023 In the past 12 months, has l ack of transportation kept you from meetings, work, or from getting things needed for daily living? No 12/29/2023 Housing Stability Vital Sign Answer Rajiv e Recorded In the last 12 months, was t here a time when you were not able to pay the mortgage or rent on time? No 12/29/2023 In the past 12 months, how m any times have you moved where you were living? 0 12/29/2023 At any time in the past 12 m [place], were you homeless or living in a jail (including now)? No 12/29/2023 Comments Unknown Sex and Gender Information Value Date Recorded Sex Assigned at Not on file Legal Sex Female 7:26 PM CDT Gender Identity Not on file Sexual Orientation Not on file Occupation Industry Job Start Date Job End Date Not on file Not on file Not on file Not on file Last Filed Vital Signs Vital Sign Reading Time Taken Comments Blood Pressure 130/68 04/13/2024 9:47 AM SCIENCE SPECIALIST Pulse 59 04/13/2024 9:21 AM SCIENCE SPECIALIST Temperature 36.8 C (98.2 F) 12/31/2023 7:59 AM CDT Respiratory Rate 16 04/13/2024 9:21 AM SCIENCE SPECIALIST Oxygen Saturation 96% 04/13/2024 9:21 AM SCIENCE SPECIALIST Inhaled Oxygen Concentration - - Weight 67.1 kg (148 lb) 04/13/2024 9:21 AM SCIENCE SPECIALIST Height 160 cm (5' 3 ) 04/13/2024 9:21 AM SCIENCE SPECIALIST Body Mass Index 26.22 04/13/2024 9:21 AM SCIENCE SPECIALIST Plan of Treatment Upcoming Encounters Date Type Department Care Team ([facility] st Contact Info) Description 09/07/2024 10:00 AM CDT Office Visit [facility] [place] [id number] Unique Jaramillo, PAElviraC [address] [place], [place] [id number] 04/21/2025 9:30 AM SCIENCE SPECIALIST Office Visit [facility] [address] [place] [address] Libia Doyle, GRIS, CORPORATE COMMUNICATIONS INTERN-C [address] [facility] [address] [place] [address] Health Maintenance Due Date Last Done Comments Hepatitis C 01/07/1963 DTaP, Tdap and Td Vaccines (1 - Tdap) 1965 Zoster Vaccines (1 of 2) 01/07/1996 AAA SCREENING 2011 Annual Medicare Wellness Visit 2011 Dexa Scan (General) 2011 Pneumococcal Vaccine: 65+ Years (2 of 2 - PCV) 10/11/2020 10/12/2019 RSV Immunization or 60+ Years (1 - 1-dose 75+ series) 2021 ASCVD LDL 04/11/2023 04/11/2022, 03/30, 03/09/2018, Additional history exists COVID-19 Vaccine ( season) 2023 01/08/2021, 05/25/2020, 05/04/2020 Influenza Adult (#1) 2023 12/31/2020, 01/17/20 20 Meningococcal B Vaccine Aged Out No l onger eligible based on patient's age to complete this topic Meningococcal Vaccine Aged Out No emy marta eligible based on patient's age to complete this topic RSV Immunizations Under 20 Months Aged Out No longer eligible based on patient's age to complete this topic Procedures Procedure Name Priority Date/Time Associated Diagnosis Comments MOBILE CONTINUOUS TELEMETRY Routine 04/29/2024 9:03 AM SCIENCE SPECIALIST Paroxysmal atrial fibrillation (CMS/HCC HHS/HCC) LIPID PANEL Routine 04/11/2022 7:25 AM SCIENCE SPECIALIST Mixed hyperlipidemia from Last 3 Months or Most Recently Relevant to Health Maintenance Results * CLINIC - 17258 MCT - Today (04/29/2024 9:03 AM SCIENCE SPECIALIST) Narrative [facility] - 04/29/2024 9:03 AM SCIENCE SPECIALIST DATE OF MONITORIN04/13/2024-04/26/2024 INDICATION: Paroxysmal atrial fibrillation FINDINGS: Patient underwent continuous cardiac monitoring using the BodyGuardian device for a total of 14 days. Only 90% of the monitored period produced readable data. Baseline Rhythm * The baseline rhythm was Sinus Rhythm with heart rates ranged between 49 and 101 beats per minute, with average rate of 61 beats per minute. Normal sinus of function noted. A-V Conduction * No Second Degree AV Block Type II. * No Third Degree AV Block. * No Pauses. Supraventricular Arrhythmia * There were 2,351 Supraventricular Ectopic beats with a burden of <1%. * 8 nonsustained supraventricular Tachycardia events - the longest episode was 8.3s on 04/13 16:07, and the fastest episode was 147 BPM on 04/23 17:25. Ventricular Arrhythmia * There were 229 Ventricular Ectopic beats with a burden of <1%. * No Ventricular Tachycardia. Atrial Fibrillation * No Atrial Fibrillation. Patient Triggered Events * 1 patient triggered events, no symptoms were specified which correlated with sinus rhythm. IMPRESSION: No significant atrial or ventricular arrhythmias were noted in this monitoring. Signed by: Messi Yanez MD us Messi Yanez MD CV VASCULAR ORDERABLES Fi nal Result [facility] * LIPID PANEL (04/11/2022 7:25 AM SCIENCE SPECIALIST) CHOLESTEROL 172 <200 MG/DL 04/11/2022 7:47 AM SCIENCE SPECIALIST [facility] Comment: THE NATIONAL LIPID ASSOCIATION AND THE NATIONAL CHOLESTEROL EDUCATION PROGRAM (NCEP) HAVE SET THE FOLLOWING GUIDELINES FOR TOTAL CHOLESTEROL IN ADULTS AGES 18 AND UP. DESIRABLE: <200 BORDERLINE HIGH: 200-239 HIGH: > OR = 240 TRIGLYCERIDES 126 <150 MG/DL 04/11/2022 7:47 AM [facility] Comment: THE NATIONAL LIPID ASSOCIATION AND THE NATIONAL CHOLESTEROL EDUCATION PROGAM (NCEP) HAVE SET THE FOLLOWING GUIDELINES FOR TRIGLYCERIDES IN ADULTS AGES 18 AND UP. NORMAL: <150 BORDERLINE HIGH: 150 TO 199 HIGH: 200 TO 499 VERY HIGH: >499 HDL 86 >49 MG/DL 04/11/2022 7:47 AM SCIENCE SPECIALIST [facility] Comment: THE NATIONAL LIPID ASSOCIATION AND THE NATIONAL CHOLESTEROL EDUCATION PROGAM (NCEP) HAVE SET THE FOLLOWING GUIDELINES FOR HDL CHOLESTEROL IN ADULTS AGES 18 AND UP. MALES: >39 FEMALES: >49 LDL-C 61 <100 MG/DL 04/11/2022 7:47 AM SCIENCE SPECIALIST [facility] Comment: THE NATIONAL LIPID ASSOCIATION AND THE NATIONAL CHOLESTEROL EDUCATION PROGAM (NCEP) HAVE SET THE FOLLOWING GUIDELINES FOR LDL CHOLESTEROL IN ADULTS AGES 18 AND UP. DESIRABLE: <100 ABOVE DESIRABLE: 100 TO 129 BORDERLINE HIGH: 130 TO 159 HIGH: 160 TO 189 VERY HIGH: >189 VLDL CALCULATION 25 MG/DL 04/11/19 23 7:47 AM [facility] Comment:REFERENCE RANGE NOT ESTABLISHED CHOL/HDL RATIO 2.0 04/11/2022 7:47 AM SCIENCE SPECIALIST [facility] Comment:REFERENCE RANGE NOT ESTABLISHED LDL/HDL 0.7 04/11/2022 7:47 AM SCIENCE SPECIALIST [facility] Comment:REFERENCE RANGE NOT ESTABLISHED NON HDL CHOLESTEROL 86 MG/DL 04/11/2022 7:47 AM [facility] Comment:REFERENCE RANGE NOT ESTABLISHED 04/11/2022 7:25 AM SCIENCE SPECIALIST us Alexis Spears MD LABORATORY Final Resul t [facility] [address] [place] [address], from Last 3 Months or Most Recently Relevant to Health Maintenance Insurance [employer] Advance Directives * Full Code (Latest Code Status on File) Date Activated Date Inactivated Comments 01/01/2024 8:37 PM * Full Code Date Activated Date Inactivated Comments 12/29/2023 3:17 AM 12/31/2023 12:26 PM Care Teams Independent Driver Relationship Specialty Start Date End Date Porfirio Robert DO [address] [place] [address] PCP - General FAMILY PRACTICE 06/11/21 Messi Yanez MD [address] [place] [address] Consulting Physician CLINICAL CARDIAC ELECTROPHYSIOLOGY 08/05/22 Elier Rosales MD [address] [place] [address] Consulting Physician INTERVENTIONAL CARDIOLOGY 11/05/23 Unique Jaramillo PA-C [address] [place], [place] [address] Referring Physician PHYSICIAN ASH COLLECTOR 02/26/24
[2024-06-10 15:52] LABS: Parathyroid Intact 64 pg/mL (16-77)
== END 2024-06-09 08:46 | disposition home or self-care (01) ==
LOC: CHSLAB 08:46
PROVIDERS: PCP Family Medicine; Visit Provider Internal Medicine Nephrology
DX: J06.9 Acute upper respiratory infection, unspecified (principal); N18.9 Chronic kidney disease, unspecified
CPT/HCPCS: 36415; 80069; 82570; 83970; 84156; 85027

== ENCOUNTER 2024-09-09 08:55 | Outpatient (CLI) | payer MEDICARE, SELFPAY ==
--- OUTSIDE RECORDS SUMMARY | 2024-09-09 09:00 | XMS_ITS | Clinical Summary ---
Author Organization [facility] Address [address] [place] [address] Phone Care Team Providers Care Obstetric Assistant Name Role Phone Ortega Santos APRN, SHAKA Primary Care Provider + Bowen Vu APRN, CNP Unavailable [phone] Alexis Chase MD Unavailable [phone] Allergies No known active allergies Medications amLODIPine [...] mg by mouth 2 times daily. Active ASPIRIN PO Take by mouth. Active Dronedarone HCl (MULTAQ PO) Take by mouth. Active Active Problems No known active problems Encounters Date Type Department Care Team Description 09/06/2024 Telephone [facility] [address] [place] [address] Bowen Vu APRN, CNP 08/29/2024 10:00 AM CDT Office Visit [facility] [address] [place] [address] Bowen Vu APRN, CNP Recurrent UTI (Primary Dx); Abnormal urinalysis Discharge Disposition: Discharged to home or Selfcare 08/27/2024 Travel from Last 3 Months Social History Tobacco Use Types Packs/Day Years Used Date Smoking Tobacco: Never Smokeless Tobacco: Never Comments No Sex and Gender Information Value Date Recorded Sex Assigned at Female 06/14/2023 1:47 PM CDT Legal Sex Female 1:50 PM CONSUMER AFFAIRS DIRECTOR Gender Identity Female 06/14/2023 1:47 PM CDT Sexual Orientation Straight 06/14/2023 1: 47 PM CDT Last Filed Vital Signs Vital Sign Reading Time Taken Comments Blood Pressure 151/63 08/29/2024 9:27 AM CDT Pulse 61 08/29/2024 9:27 AM CDT Temperature 36.6 C (97.8 F) 08/17/2023 8:50 AM CDT Respiratory Rate 16 08/29/2024 9:27 AM CDT Oxygen Saturation 97% 08/29/2024 9:27 AM CDT Inhaled Oxygen Concentration - - Weight 65.8 kg (145 lb) 08/29/2024 9:27 AM CDT Height 160 cm (5' 3) 08/29/2024 9:27 AM CDT Body Mass Index 25.69 08/29/2024 9:27 AM CDT Plan of Treatment Health Maintenance Due [...] on patient's age to complete this topic Human Papillomavirus (HPV) Immunization Aged Out No longer eligible based on patient's age to complete this topic Meningococcal Immunization (ACWY) Aged Out No longer eligible based on patient's age to complete this topic Rotavirus Immunization Aged Out No lo nger eligible based on patient's age to complete this topic Procedures Procedure Name Priority Date/Time Associated Diagnosis Comments POCT UA AUTOMATED W/O MICRO Routine 08/29/2024 9:42 AM CDT Recurrent UTI from Last 3 Months Results * (ABNORMAL) POCT UA AUTOMATED W/O MICRO (08/29/2024 9:42 AM CDT) POC UA SPECIFIC GRAVITY 1.015 URINE PH 5.0 5.0 - 9.0 POC URINE LEUKOCYTES 25 /ul(A) Negative Tabitha/uL POC URINE NITRITE Negative Negative POC URINE PROTEIN Trace(A) Negative mg/dL POC URINE GLUCOSE Norm Negative, Norm mg/dL POC URINE KETONE Negative Negative mg/dL POC URINE UROBILINOGEN Norm Norm, 0.2 E.U./dL (mg/dL), 1 E.U./dL (mg/dL) POC URINE BILIRUBIN Negative Negative mg/dL POC URINE BLOOD INSTRUMENT TR(A) Negative Silvano/uL POC URINE COLOR Yellow POC URINE CLARITY Clear 08/29/2024 9:42 AM CDT Bowen Vu APRN, TRAY LINE SUPERVISOR POINT OF CARE TESTING (MANUAL) Final Result from Last 3 Months Insurance MEDICARE C [employer] Care Teams Obstetric Assistant Relationship Specialty Start Date End Date Ortega Santos APRN, TRAY LINE SUPERVISOR [address] [place] [address] PCP - General Advanced Practice Nurse 04/28/23 Bowen Vu APRN, TRAY LINE SUPERVISOR [address] [place] [address] Nurse Practitioner Advanced Practice Nurse 07/28/23 Alexis Chase MD [address] [address] Consulting Physician Urology 08/17/23
--- OUTSIDE RECORDS SUMMARY | 2024-09-09 09:00 | XMS_ITS | Referral Summary ---
Author Organization [facility] Address [address] [place] [address] Care Team Providers Care Forest Aide Name Role Phone Porfirio Robert DO Primary Care Provider Social History Tobacco Use Types Packs/Day Years Used Date Smoking Tobacco: Never Assessed Personal Safety Answer Date Recorded Getting School Help Needed Not on file 05/24 Comments Unknown Sex and Gender Information Value Date Recorded Sex Assigned at Not on file Legal Sex Female 8:01 PM HRIS ANALYST Gender Identity Female 01/01/2022 7:17 PM CDT Sexual Orientation Straight 01/01/2022 7: 17 PM CDT Plan of Treatment Not on file Insurance [facility] MEDICARE ADVANTAGE Care Teams Forest Aide Relationship Specialty Start Date End Date Porfirio Robert DO [address] [place] [address] PCP - General Family Medicine 12/30/21
--- OUTSIDE RECORDS SUMMARY | 2024-09-09 09:00 | XMS_ITS | Clinical Summary ---
Author Organization [facility] Address [address] [place] [address] Care Team Providers Care Guitar Maker Name Role Phone Porfirio Robert DO Primary Care Provider Social History Tobacco Use Types Packs/Day Years Used Date Smoking Tobacco: Never Assessed Personal Safety Answer Date Recorded Getting School Help Needed Not on file 05/24 Comments Unknown Sex and Gender Information Value Date Recorded Sex Assigned at Not on file Legal Sex Female 8:01 PM IMPORT COORDINATION AND PRODUCTION HEAD Gender Identity Female 01/01/2022 7:17 PM CDT [...] 01/08/2021, 05/25/2020, Additional history exists Influenza Vaccine (Season Ended) 2024 01/01/20 21 Insurance [facility] MEDICARE ADVANTAGE [facility] Address: [facility] [address] [place] [address] Care Teams Guitar Maker Relationship Specialty Start Date End Date Porfirio Robert DO [address] [place] [address] PCP - General Family Medicine 12/30/21
== END 2024-09-09 08:56 | disposition home or self-care (01) ==
PROVIDERS: PCP Family Medicine; Visit Provider Family Medicine
DX: R35.0 Frequency of micturition (principal)
CPT/HCPCS: 87086

== ENCOUNTER 2025-01-04 09:20 | Outpatient (CLI) | payer MEDICARE, SELFPAY ==
[2025-01-04 09:33] LABS: Hematocrit 38.2 % (35.0-42.0); Hemoglobin 12.5 g/dL (11.7-13.8); Mean Corpuscular HGB Conc 32.7 g/dL (32-36); Mean Corpuscular Hemoglobin 30.4 pg (27.0-31.0); Mean Corpuscular Volume 92.9 fL (78.0-102.0); Platelet Count Result 194 K/mm3 (150-420); Red Blood Count 4.11 M/mm3 (4.20-5.40); White Blood Count 5.8 K/mm3 (4.8-10.8)
[2025-01-04 09:46] LABS: Total Protein Urine Random < 5 mg/dL; Ur Ttl Prot Creatinine Ratio 0.03 mg/mg (0-0.20)
[2025-01-04 10:16] LABS: Albumin Level 4.8 g/dL (3.5-5.1); Anion Gap 9 mmol/L (4-12); Blood Urea Nitrogen 17 mg/dL (7-17); Calcium 10.1 mg/dL (8.4-10.2); Carbon Dioxide 28 mmol/L (22-30); Chloride 104 mmol/L (98-107); Estimated Glomerular Filt Rate 40; Glucose 102 mg/dL (65-110); Osmolality Calculated 293 mOsm/kg (285-295); Potassium 5.0 mmol/L (3.4-5.0); Sodium 141 mmol/L (137-145)
[2025-01-05 09:35] LABS: Parathyroid Intact 60.1 (7.5-53.5)
== END 2025-01-04 09:21 | disposition home or self-care (01) ==
LOC: CHSLAB 09:21
PROVIDERS: PCP Family Medicine; Visit Provider Internal Medicine Nephrology
DX: N18.9 Chronic kidney disease, unspecified (principal)
CPT/HCPCS: 36415; 80069; 82570; 83970; 84156; 85027